=== PATIENT | female | born 1930 | race Caucasian/White ===

== ENCOUNTER 2018-03-07 15:05 | Inpatient (IN) | payer OTHER ==
--- NOTE | 2018-03-07 15:17 | PDOC ---
History of Present Illness - History of Present Illness Initial Comments: 03/07/18 16:59 The patient is a 87 year old female, with a significant past medical history of dementia, who presents to the emergency department s/p fall via EMS from [facility] with, left arm pain. As per patients friend, she fell in her room and was found on the floor. The patient had another recent fall this weekend and was advised to use a walker which she denied. The patient is a poor historian due to her clinical condition. She endorses left wrist pain. Allergies: NKA Primary Care Physician: Dr. Reid <Anthony Colin - Last Filed: 03/07/18 16:59> <Traci Salomon - Last Filed: 03/07/18 17:12> <Irish Lau - Last Filed: 03/07/18 20:09> - General History Source: Patient Exam Limitations: No Limitations <Elo Luu - Last Filed: 03/09/18 10:01> - General Chief Complaint: Injury Stated Complaint: FALL Time Seen by Provider: 03/07/18 15:16 Past History <Anthony Colin - Last Filed: 03/07/18 16:59> <Traci Salomon - Last Filed: 03/07/18 17:12> <Irish Lau - Last Filed: 03/07/18 20:09> <Elo Luu - Last Filed: 03/09/18 10:01> - Past Medical History Allergies/Adverse Reactions: Allergies Allergy/AdvReac Type Severity Reaction Status Date / Time No Known Allergies Allergy Verified 03/07/18 15:25 Home Medications: Ambulatory Orders Acetaminophen [Tylenol] 650 mg PO DAILY PRN 03/07/18 Aspirin 81 mg PO DAILY 03/07/18 Bimatoprost [Lumigan] 1 drop IO DAILY 03/07/18 Calcium Carbonate/Vitamin D3 [Oyster Shell 500-Vit D3 200 Tb] 1 each PO DAILY Cholecalciferol (Vitamin D3) [Vitamin D3] 1,000 unit PO DAILY 03/07/18 Donepezil HCl [Aricept -] 10 mg PO DAILY 03/07/18 Fluoxetine HCl [Sarafem] 10 mg PO DAILY 03/07/18 Fluticasone Prop 0.05% Nasal [Flonase -] 1 - 2 spray NS DAILY 03/07/18 Lisinopril [Prinivil] 20 mg PO DAILY 03/07/18 Memantine HCl [Namenda -] 10 mg PO DAILY 03/07/18 Simvastatin [Zocor -] 20 mg PO HS 03/07/18 clonazePAM [Klonopin -] 0.5 mg PO DAILY 03/07/18 Polyvinyl Alcohol [Artificial Tears] 1 drop OS TID 03/08/18 Timolol 0.25% [Timoptic 0.25%] 1 drop OD BID 03/08/18 Review of Systems - Review of Systems Able to Perform ROS?: Yes Comments:: 03/07/18 16:59 CONSTITUTIONAL: No fever, no chills, no fatigue EYES: No visual changes ENT: No ear pain, no sore throat CARDIOVASCULAR: No chest pain, no palpitations RESPIRATORY: No cough, no SOB GI: No abdominal pain, no nausea, no vomiting, no constipation, no diarrhea GENITOURINARY: No dysuria, no frequency, no hematuria +MUSKULOSKELETAL: Left wrist pain. No backpain. SKIN: No rash NEURO: No headache All Other Systems: Reviewed and Negative <Anthony Colin - Last Filed: 03/07/18 16:59> *Physical Exam - Vital Signs Last Vital Signs Temp Pulse Resp BP Pulse Ox 98.8 F 92 H 18 102/74 93 L 03/07/18 15:11 03/07/18 16:21 03/07/18 16:21 03/07/18 16:21 03/07/18 16:21 <Anthony oClin - Last Filed: 03/07/18 16:59> - Vital Signs Last Vital Signs Temp Pulse Resp BP Pulse Ox 98.8 F 92 H 18 102/74 93 L 03/07/18 15:11 03/07/18 16:21 03/07/18 16:21 03/07/18 16:21 03/07/18 16:21 <Traci Salomon - Last Filed: 03/07/18 17:12> - Vital Signs Last Vital Signs Temp Pulse Resp BP Pulse Ox 98.8 F 92 H 18 102/74 93 L 03/07/18 15:11 03/07/18 16:21 03/07/18 16:21 03/07/18 16:21 03/07/18 16:21 <Irish Lau - Last Filed: 03/07/18 20:09> ED Treatment Course - LABORATORY CBC & Chemistry Diagram: 03/07/18 16:00 03/07/18 16:00 - ADDITIONAL ORDERS Additional order review: Laboratory Results 03/07/18 03/07/18 16:00 16:00 PT with INR 12.40 INR 1.10 H Sodium 136 Potassium 4.5 Chloride 99 Carbon Dioxide 30 Anion Gap 7 L BUN 26 H Creatinine 0.9 Creat Clearance w eGFR 59.09 Random Glucose 115 H Calcium 8.5 Total Bilirubin 0.2 AST 17 ALT 18 Alkaline Phosphatase 94 Creatine Kinase 61 Troponin I < 0.02 Total Protein 6.2 L Albumin 3.2 L 03/07/18 16:00 RBC 4.20 MCV 89.8 MCHC 34.1 RDW 13.0 MPV 7.9 Neutrophils % 80.3 Lymphocytes % 11.7 Monocytes % 5.7 Eosinophils % 1.5 Basophils % 0.8 - Medications Given in the ED: ED Medications Discontinued Medications Generic Name Dose Route Start Last Admin Trade Name Freq PRN Reason Stop Dose Admin Morphine Sulfate 2 mg 03/07/18 16:36 03/07/18 16:45 Morphine Injection - IVPUSH 03/07/18 16:37 2 mg ONCE ONE Administration <Anthony Colin - Last Filed: 03/07/18 16:59> - LABORATORY CBC & Chemistry Diagram: 03/07/18 16:00 03/07/18 16:00 - ADDITIONAL ORDERS Additional order review: Laboratory Results 03/07/18 03/07/18 03/07/18 16:00 16:00 16:00 PT with INR 12.40 INR 1.10 H Sodium 136 Potassium 4.5 Chloride 99 Carbon Dioxide 30 Anion Gap 7 L BUN 26 H Creatinine 0.9 Creat Clearance w eGFR 59.09 Random Glucose 115 H Calcium 8.5 Total Bilirubin 0.2 AST 17 ALT 18 Alkaline Phosphatase 94 Creatine Kinase 61 Troponin I < 0.02 Total Protein 6.2 L Albumin 3.2 L Blood Type O POSITIVE 03/07/18 16:00 RBC 4.20 MCV 89.8 MCHC 34.1 RDW 13.0 MPV 7.9 Neutrophils % 80.3 Lymphocytes % 11.7 Monocytes % 5.7 Eosinophils % 1.5 Basophils % 0.8 - Medications Given in the ED: ED Medications Discontinued Medications Generic Name Dose Route Start Last Admin Trade Name Freq PRN Reason Stop Dose Admin Morphine Sulfate 2 mg 03/07/18 16:36 03/07/18 16:45 Morphine Injection - IVPUSH 03/07/18 16:37 2 mg ONCE ONE Administration <Traci Salomon - Last Filed: 03/07/18 17:12> - LABORATORY CBC & Chemistry Diagram: 03/07/18 16:00 03/07/18 16:00 - ADDITIONAL ORDERS Additional order review: Laboratory Results 03/07/18 03/07/18 03/07/18 16:00 16:00 16:00 PT with INR 12.40 INR 1.10 H Sodium 136 Potassium 4.5 Chloride 99 Carbon Dioxide 30 Anion Gap 7 L BUN 26 H Creatinine 0.9 Creat Clearance w eGFR 59.09 Random Glucose 115 H Calcium 8.5 Total Bilirubin 0.2 AST 17 ALT 18 Alkaline Phosphatase 94 Creatine Kinase 61 Troponin I < 0.02 Total Protein 6.2 L Albumin 3.2 L Blood Type O POSITIVE Antibody Screen Negative 03/07/18 16:00 RBC 4.20 MCV 89.8 MCHC 34.1 RDW 13.0 MPV 7.9 Neutrophils % 80.3 Lymphocytes % 11.7 Monocytes % 5.7 Eosinophils % 1.5 Basophils % 0.8 - Medications Given in the ED: ED Medications Discontinued Medications Generic Name Dose Route Start Last Admin Trade Name Freq PRN Reason Stop Dose Admin Haloperidol 5 mg 03/07/18 17:29 03/07/18 17:30 Haldol Injection (Fast Acting) - IM 03/07/18 17:30 5 mg ONCE ONE Administration Lorazepam 2 mg 03/07/18 19:54 03/07/18 20:05 Ativan Injection - IM 03/07/18 19:55 2 mg ONCE ONE Administration Morphine Sulfate 2 mg 03/07/18 16:36 03/07/18 16:45 Morphine Injection - IVPUSH 03/07/18 16:37 2 mg ONCE ONE Administration <Irish Lau - Last Filed: 03/07/18 20:09> - LABORATORY CBC & Chemistry Diagram: 03/09/18 06:00 03/09/18 06:00 <Elo Luu - Last Filed: 03/09/18 10:01> Medical Decision Making - Medical Decision Making 03/07/18 17:[address] Bob at this time. Dr. Bbo will be coming to the ED to see the patient. <Traci Salomon - Last Filed: 03/07/18 17:12> - Medical Decision Making 03/07/18 16:09 87 yo F presenting to the ER s/p fall , unwitnessed Pt has dementia, poor historian Pt has obvious left wrist deformity Pt also reports hip pain Will do: Labs CT head, and C spine Xray chest, hip, wrist Will contact ortho Will plan for possible admission EKG: Twelve-lead EKG was performed and reviewed by me. There is normal sinus rhythm with a normal rate of 61 bpm. The axis is normal. The intervals are normal. There are no ST or T wave abnormalities. Impression: Normal twelve-lead EKG 03/07/18 16:38 Laboratory Tests 03/07/18 03/07/18 16:00 16:00 WBC 10.8 H Hgb 12.9 Hct 37.7 Plt Count 215 INR 1.10 H Pt signed out to Dr Lau Pending xrays, labs, CT scans Call placed to Dr. Bob who will come see this patient <Elo Luu - Last Filed: 03/09/18 10:01> *DC/Admit/Observation/Transfer - Attestations Scribe Attestion: 03/07/18 17:00 Documentation prepared by Anthony Colin, acting as medical auditor for Elo Luu MD. <Anthony Colin - Last Filed: 03/07/18 16:59> <Traci Salomon - Last Filed: 03/07/18 17:12> - Discharge Dispostion Decision to Admit order: Yes <Irish Lau - Last Filed: 03/07/18 20:09> <Elo Luu - Last Filed: 03/09/18 10:01> Diagnosis at time of Disposition: Intertrochanteric fracture of left hip Qualifiers: Encounter type: initial encounter Fracture type: closed Fracture alignment: displaced Qualified Code(s): S72.142A - Displaced intertrochanteric fracture of left femur, initial encounter for closed fracture Wrist fracture, left Qualifiers: Encounter type: initial encounter Fracture type: closed Qualified Code(s): S62.102A - Fracture of unspecified carpal bone, left wrist, initial encounter for closed fracture Dementia Qualifiers: Dementia type: unspecified type Dementia behavioral disturbance: with behavioral disturbance Qualified Code(s): F03.91 - Unspecified dementia with behavioral disturbance
[2018-03-07 16:09] LABS: BASO % 0.8 % (0-2.0); EOS % 1.5 % (0-4.5); HEMATOCRIT 37.7 % (32.4-45.2); HEMOGLOBIN 12.9 GM/dL (10.7-15.3); LYMPH % 11.7 % (8-40); MCH 30.6 pg (25.7-33.7); MCHC 34.1 g/dl (32.0-36.0); MEAN CELL VOLUME 89.8 fl (80-96); MEAN PLT VOLUME 7.9 fl (7.5-11.1); MONO % 5.7 % (3.8-10.2); NEUT % 80.3 % (42.8-82.8); PLATELET COUNT 215 K/MM3 (134-434); WHITE BLOOD COUNT 10.8 K/mm3 (4.0-10.0)
[2018-03-07 16:35] LABS: ALBUMIN 3.2 g/dl (3.4-5.0); ANION GAP 7 (8-16); BILIRUBIN,TOTAL 0.2 mg/dL (0.2-1.0); BLOOD UREA NITROGEN 26 mg/dL (7-18); CALCIUM 8.5 mg/dL (8.5-10.1); CHLORIDE 99 mmol/L (98-107); CO2 30 mmol/L (21-32); CREATININE 0.9 mg/dL (0.55-1.02); GLUCOSE,RANDOM 115 mg/dL (74-106); INR 1.1 (0.83-1.09); POTASSIUM 4.5 mmol/L (3.5-5.1); PROTHROMBIN TIME (PATIENT) 12.4 SEC (9.7-13.0); SGOT/AST 17 U/L (15-37); SGPT/ALT 18 U/L (12-78); SODIUM 136 mmol/L (136-145); TOT PROT 6.2 g/dl (6.4-8.2)
[2018-03-07] MEDS ORDERED: morphine CARPU-JECT 4 MG/1 ML DISP.SYRIN IVPUSH ONE (16:36)
[2018-03-07 16:37] LABS: ALK PHOS 94 U/L (45-117)
[2018-03-07] MEDS ORDERED: MORPHINE SULFATE 2 MG/ML VIAL ONE (16:39)
[2018-03-07] MEDS ORDERED: HALOPERIDOL LACTATE 5 MG/ML ONE (17:21)
[2018-03-07] MEDS ORDERED: HALOPERIDOL LACTATE 5 MG/ML IM ONE (17:29)
[2018-03-07] MEDS ORDERED: LORazepam 2 MG/ML SDV VIAL ONE (19:58)
--- NOTE | 2018-03-07 21:00 | HP ---
CHIEF COMPLAINT:left wrist pain s/p fall PCP:Dr. Reid HISTORY OF PRESENT ILLNESS: Patient is an 87 year old female with past medical history of dementia was brought in by EMS after a fall. According to her friend, she fell in her room and was found on the floor. Patient complained of left wrist pain. Patient was also reported to have had another fall last weekend. She was advised to use a walker but patient denied it. Patient was somnolent and unarousable at time of interview because she received morphine at the ED. ER course was notable for: (1)Xray of left wrist - displaced fx of distal radius with post. and lat. displacement of distal segment (2)Xray of left hip - comminuted fx of L femoral intratrochanteric bone with displaced fragments and avulsion of lesser trochanter Recent Travel: [place] PAST MEDICAL HISTORY: Dementia PAST SURGICAL HISTORY: Social History: Smoking: Alcohol: Drugs: Family History: Allergies No Known Allergies Allergy (Verified 03/07/18 15:25) HOME MEDICATIONS: Home Medications Medication Instructions Recorded Acetaminophen [Tylenol] 650 mg PO DAILY PRN 03/07/18 Aspirin 81 mg PO DAILY 03/07/18 Bimatoprost [Lumigan] 1 drop IO DAILY 03/07/18 Calcium Carbonate/Vitamin D3 1 each PO DAILY 03/07/18 [Oyster Shell 500-Vit D3 200 Tb] Cholecalciferol (Vitamin D3) 1,000 unit PO DAILY 03/07/18 [Vitamin D3] Donepezil HCl [Aricept -] 10 mg PO DAILY 03/07/18 Fluoxetine HCl [Sarafem] 10 mg PO DAILY 03/07/18 Fluticasone Prop 0.05% Nasal 1 - 2 spray NS DAILY 03/07/18 [Flonase -] Lisinopril [Prinivil] 20 mg PO DAILY 03/07/18 Memantine HCl [Namenda -] 10 mg PO DAILY 03/07/18 Simvastatin [Zocor -] 20 mg PO HS 03/07/18 clonazePAM [Klonopin -] 0.5 mg PO DAILY 03/07/18 REVIEW OF SYSTEMS CONSTITUTIONAL: Absent: fever, chills, diaphoresis, generalized weakness, malaise, loss of appetite, weight change HEENT: Absent: rhinorrhea, nasal congestion, throat pain, throat swelling, difficulty swallowing, mouth swelling, ear pain, eye pain, visual changes CARDIOVASCULAR: Absent: chest pain, syncope, palpitations, irregular heart rate, lightheadedness , peripheral edema RESPIRATORY: Absent: cough, shortness of breath, dyspnea with exertion, orthopnea, wheezing, stridor, hemoptysis GASTROINTESTINAL: Absent: abdominal pain, abdominal distension, nausea, vomiting, diarrhea, constipation, melena, hematochezia GENITOURINARY: Absent: dysuria, frequency, urgency, hesitancy, hematuria, flank pain, genital pain MUSCULOSKELETAL: + joint swelling Absent: myalgia, arthralgia, back pain, neck pain SKIN: Absent: rash, itching, pallor HEMATOLOGIC/IMMUNOLOGIC: Absent: easy bleeding, easy bruising, lymphadenopathy, frequent infections ENDOCRINE: Absent: unexplained weight gain, unexplained weight loss, heat intolerance, cold intolerance NEUROLOGIC: Absent: headache, focal weakness or paresthesias, dizziness, unsteady gait, seizure, mental status changes, bladder or bowel incontinence PSYCHIATRIC: Absent: anxiety, depression, suicidal or homicidal ideation, hallucinations. PHYSICAL EXAMINATION Vital Signs - 24 hr 03/07/18 03/07/18 15:11 16:21 Temperature 98.8 F Pulse Rate 92 H Pulse Rate [ 92 H Right Radial] Respiratory 16 18 Rate Blood Pressure 168/80 Blood Pressure 102/74 [Left Arm] O2 Sat by Pulse 96 93 L Oximetry (%) GENERAL: somnolent, unarousable, in no acute distress. HEAD: Normal with no signs of trauma. EARS, NOSE, THROAT: Ears normal, nares patent, oropharynx clear without exudates. Moist mucous membranes. NECK: Normal range of motion, supple without lymphadenopathy, JVD, or masses. LUNGS: Breath sounds equal, clear to auscultation bilaterally. No accessory muscle use. HEART: Regular rate and rhythm, normal S1 and S2 without murmur, rub or gallop. ABDOMEN: Soft, nontender, not distended, normoactive bowel sounds. UPPER EXTREMITIES: 2+ pulses, warm, well-perfused. +bruise, L wrist LOWER EXTREMITIES: 2+ pulses, warm, well-perfused. +bruise, L hip NEUROLOGICAL: Cranial nerves II-XII intact. Normal speech. Normal gait. PSYCHIATRIC: Cooperative. Good eye contact. Appropriate mood and affect. SKIN: Warm, dry, normal turgor, no rashes or lesions noted. Laboratory Results - last 24 hr 03/07/18 03/07/18 03/07/18 16:00 16:00 16:00 WBC 10.8 H RBC 4.20 Hgb 12.9 Hct 37.7 MCV 89.8 MCH 30.6 MCHC 34.1 RDW 13.0 Plt Count 215 MPV 7.9 Absolute Neuts (auto) 8.6 Neutrophils % 80.3 Lymphocytes % 11.7 Monocytes % 5.7 Eosinophils % 1.5 Basophils % 0.8 Nucleated RBC % 0 PT with INR 12.40 INR 1.10 H Sodium 136 Potassium 4.5 Chloride 99 Carbon Dioxide 30 Anion Gap 7 L BUN 26 H Creatinine 0.9 Creat Clearance w eGFR 59.09 Random Glucose 115 H Calcium 8.5 Total Bilirubin 0.2 AST 17 ALT 18 Alkaline Phosphatase 94 Creatine Kinase 61 Troponin I < 0.02 Total Protein 6.2 L Albumin 3.2 L Blood Type Antibody Screen 03/07/18 16:00 WBC RBC Hgb Hct MCV MCH MCHC RDW Plt Count MPV Absolute Neuts (auto) Neutrophils % Lymphocytes % Monocytes % Eosinophils % Basophils % Nucleated RBC % PT with INR INR Sodium Potassium Chloride Carbon Dioxide Anion Gap BUN Creatinine Creat Clearance w eGFR Random Glucose Calcium Total Bilirubin AST ALT Alkaline Phosphatase Creatine Kinase Troponin I Total Protein Albumin Blood Type O POSITIVE Antibody Screen Negative CBC, BMP 03/07/18 16:00 03/07/18 16:00 ASSESSMENT/PLAN: Patient is an 87 year old female with past medical history of dementia was brought in by EMS after a fall. According to her friend, she fell in her room and was found on the floor. Patient complained of left wrist pain. #Fracture, L wrist and L hip -Xray of left wrist: displaced fx of distal radius with post. and lat. displacement of distal segment -X-ray of left hip: comminuted fx of L femoral intratrochanteric bone with displaced fragments and avulsion of lesser trochanter -Left wrist reduced at the ED. -Iv fluids started. -Patient on NPO. -Fall precaution. -Creatine kinase, UA and urine myoglobin ordered. -Tylenol and morphine PRN for pain. -Dr. Fuchs consult appreciated. -Echo ordered. -Dr. Riggs consult for cardio clearance. #FEN -IV NS (0.9%) at 75ml/hr. -electrolytes WNL, routine BMP monitoring -Sodium restricted diet. #Prophylaxis -Lovenox 40mg sq qd. #Disposition -admit to med-surg. -full code. Visit type - Emergency Visit Emergency Visit: Yes ED Registration Date: 03/07/18 Care time: The patient presented to the Emergency Department on the above date and was hospitalized for further evaluation of their emergent condition. - New Patient This patient is new to me today: Yes Date on this admission: 03/08/18 - Critical Care Critical Care patient: No Hospitalist Screening - Colonoscopy Questionnaire Colonoscopy Questionnaire: Colonoscopy Questionnaire - Patient: 50 - 75 years old and never had a screening colonoscopy: Unknown History of colon or rectal polyps, or CA: Unknown History of IBD, Crohn's disease or UC: Unknown History of abdominal radiation therapy as a child: Unknown - Relative: 1 with colon or rectal CA, or polyps at age 60 or younger: Unknown Colon or rectal CA diagnosed at age 45 or younger: Unknown Multiple relatives with colon or rectal CA: Unknown - Outcome: Screening Result: Negative Screen
[2018-03-07] MEDS ORDERED: LIDOCAINE HCL 2% (20ML MULTI-DOSE VIAL) NR ONE (21:16)
[2018-03-08 02:55] VITALS: BMI 29.5
[2018-03-08] MEDS ORDERED: ACETAMINOPHEN 325 MG TABLET (FP) PO PRN (03:18)
--- NOTE | 2018-03-08 03:23 | PN ---
Teaching Attending Note Name of Resident: Jeniffer Chavez ATTENDING PHYSICIAN STATEMENT I saw and evaluated the patient. Chart, data, imaging reviewed. I reviewed the resident's note and discussed the case with the resident. I agree with the resident's findings and plan as documented. SUBJECTIVE: 87 year old female, with a significant past medical history of dementia, who presents to the emergency department s/p fall via EMS from [facility] on [place] s/p unwitnessed fall on 03/07, no reported LOC, but c/o pain in left upper extremity. Patient was olmos-imaged and found to have left wrist fracture and left hip intertrochanteric fracture. S/p left wrist reduction in ER. OBJECTIVE: Last Vital Signs Temp Pulse Resp BP Pulse Ox 97.7 F 77 18 155/72 98 03/08/18 02:49 03/08/18 02:49 03/08/18 02:49 03/08/18 02:49 03/08/18 02:49 General- nad, disoriented Heent - atraumatic, pinpoint pupils neck- supple cv - s1+s2+ rrr chest b/l air entry abdomen -soft, nt bs+ ext -left wrist in cast+, left hip tender Abnormal Lab Results 03/07/18 03/07/18 03/07/18 16:00 16:00 16:00 WBC 10.8 H INR 1.10 H Anion Gap 7 L BUN 26 H Random Glucose 115 H Total Protein 6.2 L Albumin 3.2 L ekg - reviewed by me, nsr, poor r wave progression, pathological Q waves in v1- v3 imaging reviewed- left wrist distal radial fx. avulsion fx of left ulnar styloid process ASSESSMENT AND PLAN: #87yo woman s/p unwitnessed fall with + left wrist fracture (distal radial and left ulnar styloid process) and left hip fracture. -admit to med/surg -orthopedics consult -pain control- tylenol IV prn -gentle IV fluid hydration -left wrist and left hip immobilization -PT -PTT -type and screen -NPO -fall precautions -bed rest -transthoracic echo -cardiology consult for cardiac clearance -lovenox 40mg sc q24hrs for DVT ppx
[2018-03-08] MEDS: SODIUM CHLORIDE 1,000 ML IV SCH (05:29)
[2018-03-08] MEDS ORDERED: HEPARIN NA (PORCINE) 5,000 UNITS/ML 1ML VIAL SQ SCH (06:00)
[2018-03-08 07:57] LABS: HEMATOCRIT 34.2 % (32.4-45.2); HEMOGLOBIN 11.4 GM/dL (10.7-15.3); MCH 30.2 pg (25.7-33.7); MCHC 33.3 g/dl (32.0-36.0); MEAN CELL VOLUME 90.7 fl (80-96); PLATELET COUNT 183 K/MM3 (134-434); RBC 3.78 M/mm3 (3.60-5.2); RDW 12.9 % (11.6-15.6); WHITE BLOOD COUNT 11.9 K/mm3 (4.0-10.0)
[2018-03-08 08:18] LABS: CHLORIDE 102 mmol/L (98-107); SODIUM 140 mmol/L (136-145)
[2018-03-08 08:23] LABS: ANION GAP 11 (8-16); BLOOD UREA NITROGEN 33 mg/dL (7-18); CALCIUM 8.3 mg/dL (8.5-10.1); CO2 27 mmol/L (21-32); CREATININE 0.9 mg/dL (0.55-1.02); GLUCOSE,RANDOM 150 mg/dL (74-106); MAGNESIUM 2.1 mg/dL (1.8-2.4); PHOSPHOROUS 4.3 mg/dL (2.5-4.9)
--- NOTE | 2018-03-08 12:41 | CON.CARD ---
Consult Consult Specialty:: Cardiology Referred by:: Hospitalist Reason for Consultation:: Cardiac evaluation - History of Present Illness Chief Complaint: S/P fall resulting in left wrist fracture History of Present Illness: Patient is an 87 year old female with underlying history of organic brain syndrome, dementia and probable HTN and hyperlipidemia who presented to ED after a fall resulting in left wrist fracture. Currently cast is applied to the wrist. She was transferred from [facility] on [facility]. She was found in her room on the floor. She is a poor historian and is not able to give a full history. She appears not to be having any cardiac symptoms at this time. 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 Cardio/Vascular: Yes: HTN, Hyperlipdemia - Alcohol/Substance Use Hx Alcohol Use: No - Smoking History Smoking history: Never smoked Have you smoked in the past 12 months: No Home Medications - Allergies Allergies/Adverse Reactions: Allergies Allergy/AdvReac Type Severity Reaction Status Date / Time No Known Allergies Allergy Verified 03/07/18 15:25 - Home Medications Home Medications: Ambulatory Orders Acetaminophen [Tylenol] 650 mg PO DAILY PRN 03/07/18 Aspirin 81 mg PO DAILY 03/07/18 Bimatoprost [Lumigan] 1 drop IO DAILY 03/07/18 Calcium Carbonate/Vitamin D3 [Oyster Shell 500-Vit D3 200 Tb] 1 each PO DAILY Cholecalciferol (Vitamin D3) [Vitamin D3] 1,000 unit PO DAILY 03/07/18 Donepezil HCl [Aricept -] 10 mg PO DAILY 03/07/18 Fluoxetine HCl [Sarafem] 10 mg PO DAILY 03/07/18 Fluticasone Prop 0.05% Nasal [Flonase -] 1 - 2 spray NS DAILY 03/07/18 Lisinopril [Prinivil] 20 mg PO DAILY 03/07/18 Memantine HCl [Namenda -] 10 mg PO DAILY 03/07/18 Simvastatin [Zocor -] 20 mg PO HS 03/07/18 clonazePAM [Klonopin -] 0.5 mg PO DAILY 03/07/18 Family Disease History - Family Disease History Family History: Unable to Obtain Review of Systems Unable to obtain ROS, reason: Unable to obtain Vital Signs: Vital Signs Temperature 98.2 F 03/08/18 10:00 Pulse Rate 85 03/08/18 10:00 Respiratory Rate 20 03/08/18 10:00 Blood Pressure 122/47 03/08/18 10:00 O2 Sat by Pulse Oximetry (%) 98 03/08/18 05:05 HENT: Yes: Atraumatic Neck: Yes: Supple Respiratory: Yes: CTA Bilaterally Gastrointestinal: Yes: Normal Bowel Sounds, Soft. No: Tenderness Cardiovascular: Yes: Regular Rate and Rhythm JVD: No Carotid Bruit: No PMI: Non-Displaced Heart Sounds: Yes: S1, S2. No: Gallop Extremities: Yes: Other (Cast applied to left wrist) Edema: No - Other Data Labs, Other Data: CBC, BMP 03/08/18 06:20 03/08/18 06:20 INR, PTT INR 1.10 (0.83-1.09) H 03/07/18 16:00 Troponin, BNP 03/07/18 16:00 Troponin I < 0.02 Laboratory Results - last 24 hr 03/07/18 03/07/18 03/07/18 16:00 16:00 16:00 WBC 10.8 H RBC 4.20 Hgb 12.9 Hct 37.7 MCV 89.8 MCH 30.6 MCHC 34.1 RDW 13.0 Plt Count 215 MPV 7.9 Absolute Neuts (auto) 8.6 Neutrophils % 80.3 Lymphocytes % 11.7 Monocytes % 5.7 Eosinophils % 1.5 Basophils % 0.8 Nucleated RBC % 0 PT with INR 12.40 INR 1.10 H Sodium 136 Potassium 4.5 Chloride 99 Carbon Dioxide 30 Anion Gap 7 L BUN 26 H Creatinine 0.9 Creat Clearance w eGFR 59.09 Random Glucose 115 H Calcium 8.5 Phosphorus Magnesium Total Bilirubin 0.2 AST 17 ALT 18 Alkaline Phosphatase 94 Creatine Kinase 61 Creatine Kinase Index CK-MB (CK-2) Troponin I < 0.02 Total Protein 6.2 L Albumin 3.2 L Blood Type Antibody Screen 03/07/18 03/08/18 03/08/18 16:00 06:20 06:20 WBC 11.9 H RBC 3.78 Hgb 11.4 Hct 34.2 MCV 90.7 MCH 30.2 MCHC 33.3 RDW 12.9 Plt Count 183 MPV 8.0 Absolute Neuts (auto) Neutrophils % Lymphocytes % Monocytes % Eosinophils % Basophils % Nucleated RBC % PT with INR INR Sodium 140 Potassium 4.0 Chloride 102 Carbon Dioxide 27 Anion Gap 11 BUN 33 H Creatinine 0.9 Creat Clearance w eGFR 59.09 Random Glucose 150 H Calcium 8.3 L Phosphorus 4.3 Magnesium 2.1 Total Bilirubin AST ALT Alkaline Phosphatase Creatine Kinase Creatine Kinase Index CK-MB (CK-2) Troponin I Total Protein Albumin Blood Type O POSITIVE Antibody Screen Negative 03/08/18 06:20 WBC RBC Hgb Hct MCV MCH MCHC RDW Plt Count MPV Absolute Neuts (auto) Neutrophils % Lymphocytes % Monocytes % Eosinophils % Basophils % Nucleated RBC % PT with INR INR Sodium Potassium Chloride Carbon Dioxide Anion Gap BUN Creatinine Creat Clearance w eGFR Random Glucose Calcium Phosphorus Magnesium Total Bilirubin AST ALT Alkaline Phosphatase Creatine Kinase 166 Creatine Kinase Index 1.1 CK-MB (CK-2) 1.93 Troponin I Total Protein Albumin Blood Type Antibody Screen Sinus rhythm, no ST-T abnormality Imaging - Results Chest X-ray: Report Reviewed X-ray: Report Reviewed (Wrist Xray) Cat Scan: Report Reviewed (Head CT) EKG: Report Reviewed Problem List - Problems (1) Dementia Code(s): F03.90 - UNSPECIFIED DEMENTIA WITHOUT BEHAVIORAL DISTURBANCE Qualifiers: Dementia type: unspecified type Dementia behavioral disturbance: with behavioral disturbance Qualified Code(s): F03.91 - Unspecified dementia with behavioral disturbance (2) Wrist fracture, left Code(s): S62.102A - FRACTURE OF UNSP CARPAL BONE, LEFT WRIST, INIT FOR CLOS FX Qualifiers: Encounter type: initial encounter Fracture type: closed Qualified Code(s) : S62.102A - Fracture of unspecified carpal bone, left wrist, initial encounter for closed fracture (3) Intertrochanteric fracture of left hip Code(s): S72.142A - DISPLACED INTERTROCHANTERIC FRACTURE OF LEFT FEMUR, INIT Qualifiers: Encounter type: initial encounter Fracture type: closed Fracture alignment: displaced Qualified Code(s): S72.142A - Displaced intertrochanteric fracture of left femur, initial encounter for closed fracture (4) HTN (hypertension) Code(s): I10 - ESSENTIAL (PRIMARY) HYPERTENSION (5) Hypercholesterolemia Code(s): E78.00 - PURE HYPERCHOLESTEROLEMIA, UNSPECIFIED Assessment/Plan 1. Left wrist fracture and left hip fracture s/p fall 2. HTN 3. Hypercholesterolemia 4. Organinc brain/dementia PLAN: 1. Continue Lisinopril as tolerated 2. Continue statin therapy 3. Orthopedic evaluation to follow. If patient were to undergo surgery, there is no absolute contraindication in view of absence of ischemic symptoms, decompensated congestive heart failure of malignant arrhythmias, however; increased risk based on her advanced age. 4. Echocardiography to assess LV/RV and valvular function Further recommendation to follow Wilfredo Limon MD
[2018-03-08] MEDS: MORPHINE SULFATE 2 MG/ML VIAL IVPUSH PRN (13:40)
--- NOTE | 2018-03-08 13:50 | PN ---
Progress Note (short form) - Note Progress Note: Consult dictated. Pt requires IM nail of left hip. Will plan surgery tomorrow if clear. Elevate LUE for swelling.
--- NOTE | 2018-03-08 14:08 | PN ---
Teaching Attending Note Name of Resident: Cindy Roman ATTENDING PHYSICIAN STATEMENT I saw and evaluated the patient. I reviewed the resident's note and discussed the case with the resident. I agree with the resident's findings and plan as documented. SUBJECTIVE:c/o L hip pain which improves with pain medication. denies Cp, SOB, fever, chills, N/V/C/D, denies LOC from the fall. admits to not using her walker as told to. METS <4. no complications with anesthesia in the past OBJECTIVE: Last Vital Signs Temp Pulse Resp BP Pulse Ox 98.2 F 85 20 122/47 98 03/08/18 10:00 03/08/18 10:00 03/08/18 10:00 03/08/18 10:03/08/18 05:05 General NAD [facility], doze off during interview but would quickly wake up CV S1 s2 + Lungs CTA B/L no wheezing/rales/rhonchi Extremities LUE in hard cast, able to move the digits without difficulty, good capillary refill unable to access radial pulse due to cast LLE +point tenderness of the hip. leg is short and externally rotated ASSESSMENT AND PLAN: 87yo F wtih PMH dementia and HTN presented to the ER after mechanical fall and sustained L wrist and L hip fracture 1. L hip fracture- s/p mechanical fall. pt is intermediate risk for intermediate risk procedure. NPO awaiting surgery at this time. will need JASON post-op. pain control 2. L wrist fracture- s/p manual reduction in the Er with cast applied. will need repeat imaging in several weeks. Ortho f/u outpatient. pain control 3. mechanical fall- due to non-compliance with RW. CT head showing chronic changes. PT eval 4. Agitation- noted in the ER. s/p haldol and ativan. lethargy likely due to medications. will monitor mental status. 5. dementia- will need to obtain baseline. re-start home medications. 6. HTN- controlled off medications. will monitor and re-start meds as needed 7. DVT ppx- hep sq 8. will need JASON on discharge
--- NOTE | 2018-03-08 14:30 | CONS ---
DATE OF CONSULTATION: 03/07/2018 CHIEF COMPLAINT: Right and hip fracture. HISTORY OF PRESENT ILLNESS: This is an 87-year-old woman who was brought to the emergency department by ambulance. She is suffering from dementia and is not able to give a history, but according to the chart, the patient was found on the floor in her room. She has had a history of falls. At the time of the exam, the patient is sedated and not communicating at all. PAST MEDICAL HISTORY: Includes dementia as well as possibly hypertension. PAST SURGICAL HISTORY: No known surgical history. SOCIAL HISTORY: No known social history. FAMILY HISTORY: No known family history. ALLERGIES: No known allergies. MEDICATIONS: Reviewed and in chart but also suggest hyperlipidemia. PHYSICAL EXAMINATION: General: This is an elderly female who is lying sedated in bed. Extremities: She moves her arm in response to palpation of the left wrist. Examination of the left wrist demonstrates gross deformity. There are no skin lesions. There is mild swelling. Has 2+ radial pulse. The left lower extremity is shortened and externally rotated and 2+ DP pulse. There is no apparent pulse to palpation of the knee. There is no effusion of the knee. No swelling at the ankle or tenderness at the ankle. DIAGNOSTIC DATA: Radiographs reviewed demonstrating a displaced, comminuted fracture of the distal radius and a displaced left intertrochanteric hip fracture. ASSESSMENT: Left wrist and left hip fracture. PLAN: Regarding the patient's left wrist fracture, this should be amenable to closed treatment. A reduction was affected tonight. The left wrist was prepped with alcohol. Under sterile technique, a 22-gauge needle was inserted into the hematoma, and 9 mL of 1% lidocaine was injected. The wrist at that hung in traction. A manual reduction was affected. A well-padded short-arm cast with a 3-point mold was placed. Postreduction radiographs demonstrated satisfactory reduction. The patient should keep the arm elevated to avoid swelling inside the cast. Regarding her hip fracture, she will require operative management. She will be medically optimized and will be brought to the operating room tomorrow or the next day, depending on when clearance is obtained. We will review the procedure with her guardian including the risks, benefits, and alternatives. Rahul [id number]
--- NOTE | 2018-03-08 16:14 | ECHO ---
Name: ARMEN JUAN Exam:Adult Echocardiogram Study Date: 03/08/2018 08:25 AM Age: 87 yrs Reason For Study: R/O VALVE ABNORMALITY Height: 64 in Weight: 172 lb BSA: 1.8 m2 MMode/2D Measurements & Calculations IVSd: 1.4 cm Ao root diam: 2.4 cm LVIDd: 3.1 cm LA dimension: 2.5 cm LVIDs: 1.9 cm LVPWd: 1.3 cm EDV(Teich): 36.7 ml ESV(Teich): 11.7 ml Doppler Measurements & Calculations MV E max mauro: 60.9 cm/sec TR max mauro: 247.7 cm/sec MV A max mauro: 100.8 cm/sec TR max P.6 mmHg MV E/A: 0.60 MV dec time: 0.21 sec Med Peak E' Mauro: 4.2 cm/sec Med E/e': 14.4 Lat Peak E' Mauro: 6.4 cm/sec Lat E/e': 9.5 Procedure A complete two-dimensional transthoracic echocardiogram was performed (2D, M-mode, Doppler and color flow Doppler). Left Ventricle The left ventricle is normal in size. There is mild concentric left ventricular hypertrophy. Ejection Fraction = 65%. The transmitral spectral Doppler flow pattern is suggestive of impaired LV relaxation. Right Ventricle The right ventricle is normal in size and function. Atria Normal left and right atrial size and function. Mitral Valve There is moderate mitral annular calcification. There is trace to mild mitral regurgitation. Tricuspid Valve The tricuspid valve is not well visualized, but is grossly normal. There is trace tricuspid regurgita tion. Right ventricular systolic pressure is 25 mmhg. Aortic Valve There is mild aortic sclerosis.;. No aortic regurgitation is present. Pulmonic Valve The pulmonic valve is not well visualized. Great Vessels The aortic root is normal size. Normal aortic arch, descending and ascending aorta. Pericardium/Pleura There is no pericardial effusion. There is no pleural effusion. Interpretation Summary The left ventricle is normal in size. There is mild concentric left ventricular hypertrophy. Ejection Fraction = 65%. The transmitral spectral Doppler flow pattern is suggestive of impaired LV relaxation. The right ventricle is normal in size and function. There is moderate mitral annular calcification. There is trace to mild mitral regurgitation. There is trace tricuspid regurgitation. Right ventricular systolic pressure is 25 mmhg. There is mild aortic sclerosis.; MD Torito Staton 03/08/2018 04:14 PM
--- NOTE | 2018-03-08 16:27 | EKG ---
Test Reason : Blood Pressure : / mmHG Vent. Rate : 061 BPM Atrial Rate : 061 BPM P-R Int : 158 ms QRS Dur : 086 ms QT Int : 416 ms P-R-T Axes : 034 010 042 degrees QTc Int : 418 ms NORMAL SINUS RHYTHM POSSIBLE ANTERIOR INFARCT , AGE UNDETERMINED ABNORMAL ECG NO PREVIOUS ECGS AVAILABLE Confirmed by Torito Staton MD ([id number]) on 03/08/2018 4:26:59 PM Referred By: Confirmed By:Torito Staton MD
--- NOTE | 2018-03-08 21:12 | PN ---
Physical Exam: SUBJECTIVE: Patient seen and examined this morning at bedside. She was somnolent and admitted to being out of it. OBJECTIVE: Vital Signs Period Temp Pulse Resp BP Sys/Lara Pulse Ox Last 24 Hr 97.5 F-98.2 F 70-97 14-20 104-155/47-72 90-99 GENERAL: AOx1 to person only, Says she is out of it, [place] of hearing LUNGS: Breath sounds equal, clear to auscultation bilaterally, no wheezes HEART: Regular rate and rhythm, S1, S2 without murmur, rub or gallop. ABDOMEN: Soft, Obese, nontender, nondistended, normoactive bowel sounds UPPER EXTREMITIES: Left wrist casted, unable to flex/extend digits, Radial pulses covered by hard cast, Capillary refill < 3 secs LOWER EXTREMITIES: Left hip pain present on palpation, No edema. Laboratory Results - last 24 hr 03/08/18 03/08/18 03/08/18 06:20 06:20 06:20 WBC 11.9 H RBC 3.78 Hgb 11.4 Hct 34.2 MCV 90.7 MCH 30.2 MCHC 33.3 RDW 12.9 Plt Count 183 MPV 8.0 Sodium 140 Potassium 4.0 Chloride 102 Carbon Dioxide 27 Anion Gap 11 BUN 33 H Creatinine 0.9 Creat Clearance w eGFR 59.09 Random Glucose 150 H Calcium 8.3 L Phosphorus 4.3 Magnesium 2.1 Creatine Kinase 166 Creatine Kinase Index 1.1 CK-MB (CK-2) 1.93 Active Medications Acetaminophen (Tylenol -) 650 mg PO Q4H PRN PRN Reason: PAIN OR FEVER Heparin Sodium (Porcine) (Heparin -) 5,000 unit SQ BID [facility] Sodium Chloride (Normal Saline -) 1,000 mls @ 75 mls/hr IV ASDIR CAMILO Last Admin: 03/08/18 05:29 Dose: 75 mls/hr Morphine Sulfate (Morphine Sulfate) 2 mg IVPUSH Q4H PRN PRN Reason: PAIN LEVEL 6-10 Last Admin: 03/08/18 13:40 Dose: 2 mg IMAGING: - X-ray of the pelvis and left hip: There is a comminuted fracture of the left the femoral intratrochanteric bone with displaced fragments and avulsion of the lesser trochanter. On the crosstable lateral view, there is very poor visualization of the left femoral neck and intertrochanteric region, due to technique with suggestion of mild anterior displacement of the distal femoral shaft. Correlate clinically - X-ray of the left elbow: No gross fracture or dislocation identified - X-ray of the left wrist: Displaced fracture of the distal radius with posterior/ lateral displacement of the distal segment. - X-ray of the left wrist: Previously visualized distal radial fracture appears to be in satisfactory alignment with residual minimal displacement. Avulsion fracture of the ulnar styloid process is again seen. - CXR: [id number] cardiomegaly with moderate to marked atherosclerotic uncoiling of the aortic arch. Mild bilateral increased lung markings without evidence of acute lung disease. - CT Brain: Generalized volume loss and moderate to marked ventricular dilatation. Lateral and third ventricles are relatively more dilated than the fourth, likely due to central atrophy. Cannot rule out normal pressure hydrocephalus or aqueduct of Sylvius narrowing/stenosis. Correlate clinically for further evaluation and follow-up - CT Cervical spine: The alignment is satisfactory. No gross fracture or subluxation is seen. ASSESSMENT/PLAN: 87 year old female with past medical history of dementia was brought in by EMS after a fall. According to her friend, she fell in her room and was found on the floor. Patient complained of left wrist pain. 1. Fracture, L Hip - S/P Mechanical fall due to noncompliance with rolling walker - X-ray of the pelvis and left hip: Comminuted fracture of the left the femoral intratrochanteric bone with displaced fragments and avulsion of the lesser trochanter - Patient is intermediate risk for intermediate risk procedure - Continue Normal Saline @ 75 mls/hr IV - NPO - Fall precaution - Continue Acetaminophen 650 mg PO Q4H PRN - Continue Morphine 2 mg IVPUSH Q4H PRN - Orthopedics (Dr. Bob) consulted, appreciate Rec's, Pt requires IM nail of left hip, Will plan surgery tomorrow 2. Fracture, L wrist - S/P Mechanical fall due to noncompliance with rolling walker - X-ray of the left elbow: No gross fracture or dislocation identified - X-ray of the left wrist: Displaced fracture of the distal radius with posterior/ lateral displacement of the distal segment. - X-ray of the left wrist: Previously visualized distal radial fracture appears to be in satisfactory alignment with residual minimal displacement. Avulsion fracture of the ulnar styloid process is again seen. - S/P Left wrist manual reduction in the ED. - Will need repeat imaging in several weeks, F/U Ortho outpatient - Continue Acetaminophen 650 mg PO Q4H PRN - Continue Morphine 2 mg IVPUSH Q4H PRN - Orthopedics (Dr. Bob) consulted, appreciate Rec's, Elevate LUE for swelling. 3. FEN - Normal Saline @ 75 mls/hr IV - Lytes WNL, replete as needed - Sodium controlled diet 4. PPx - DVT: Lovenox 40mg sq qd. Dispo: admit to med-surg, suygery tmrw Visit type - Emergency Visit Emergency Visit: Yes ED Registration Date: 03/07/18 Care time: The patient presented to the Emergency Department on the above date and was hospitalized for further evaluation of their emergent condition. - New Patient This patient is new to me today: Yes Date on this admission: 03/08/18 - Critical Care Critical Care patient: No
[2018-03-08] MEDS: HEPARIN NA (PORCINE) 5,000 UNITS/ML 1ML VIAL SQ SCH (21:14)
[2018-03-09] MEDS: SODIUM CHLORIDE 1,000 ML IV SCH ×2 (06:49→21:12)
[2018-03-09 07:14] LABS: BASO % 0.4 % (0-2.0); EOS % 0.4 % (0-4.5); HEMATOCRIT 28.3 % (32.4-45.2); HEMOGLOBIN 9.6 GM/dL (10.7-15.3); LYMPH % 12.9 % (8-40); MCH 30.4 pg (25.7-33.7); MEAN CELL VOLUME 89.3 fl (80-96); MEAN PLT VOLUME 8.1 fl (7.5-11.1); MONO % 13.7 % (3.8-10.2); NEUT % 72.6 % (42.8-82.8); PLATELET COUNT 157 K/MM3 (134-434); RBC 3.16 M/mm3 (3.60-5.2); RDW 12.9 % (11.6-15.6); WHITE BLOOD COUNT 11.3 K/mm3 (4.0-10.0)
[2018-03-09] MEDS: MORPHINE SULFATE 2 MG/ML VIAL IVPUSH PRN (07:40)
[2018-03-09 08:36] LABS: CHLORIDE 103 mmol/L (98-107); SODIUM 136 mmol/L (136-145)
[2018-03-09 09:13] LABS: ALBUMIN 2.7 g/dl (3.4-5.0); ALK PHOS 68 U/L (45-117); ANION GAP 6 (8-16); BILIRUBIN,TOTAL 0.4 mg/dL (0.2-1.0); BLOOD UREA NITROGEN 30 mg/dL (7-18); CALCIUM 7.8 mg/dL (8.5-10.1); CO2 27 mmol/L (21-32); CREATININE 0.8 mg/dL (0.55-1.02); GLUCOSE,RANDOM 130 mg/dL (74-106); MAGNESIUM 2.2 mg/dL (1.8-2.4); PHOSPHOROUS 2.6 mg/dL (2.5-4.9); SGOT/AST 15 U/L (15-37); SGPT/ALT 14 U/L (12-78); TOT PROT 5.3 g/dl (6.4-8.2)
[2018-03-09] MEDS: HEPARIN NA (PORCINE) 5,000 UNITS/ML 1ML VIAL SQ SCH ×2 (10:32→21:12)
--- NOTE | 2018-03-09 12:21 | PN ---
Progress Note (short form) - Note Progress Note: Pt lying comf in bed. AFVSS LUE in cast LLE short and ER calves soft NT NV exam grossly intact HCT 28 A/p: L wrist fx -continue cast -elevate for swelling L hip fx -surgery cancelled today as pt had breakfast -will reschedule for tomorrow -NPO p midnight
--- NOTE | 2018-03-09 12:37 | PN ---
Progress Note, Physician History of Present Illness: Resting comfortably, no complaints. - Current Medication List Current Medications: Active Medications Acetaminophen (Tylenol -) 650 mg PO Q4H PRN PRN Reason: PAIN OR FEVER Heparin Sodium (Porcine) (Heparin -) 5,000 unit SQ BID [facility] Last Admin: 03/09/18 10:32 Dose: Not Given Sodium Chloride (Normal Saline -) 1,000 mls @ 75 mls/hr IV ASDIR CAMILO Last Admin: 03/09/18 06:49 Dose: 75 mls/hr Morphine Sulfate (Morphine Sulfate) 2 mg IVPUSH Q4H PRN PRN Reason: PAIN LEVEL 6-10 Last Admin: 03/09/18 07:40 Dose: 2 mg - Objective Vital Signs: Vital Signs Temperature 99.3 F 03/09/18 06:00 Pulse Rate 100 H 03/09/18 06:00 Respiratory Rate 22 03/09/18 06:00 Blood Pressure 136/65 03/09/18 06:00 O2 Sat by Pulse Oximetry (%) 92 L 03/08/18 21:00 Constitutional: Yes: No Distress, Calm Neck: Yes: Supple Cardiovascular: Yes: Regular Rate and Rhythm Respiratory: Yes: Regular, Diminished Gastrointestinal: Yes: Normal Bowel Sounds, Soft Edema: No Labs: CBC, BMP 03/09/18 06:00 03/09/18 06:00 INR, PTT INR 1.10 (0.83-1.09) H 03/07/18 16:00 Problem List - Problems (1) Pre-operative cardiovascular examination Code(s): Z01.810 - ENCOUNTER FOR PREPROCEDURAL CARDIOVASCULAR EXAMINATION (2) Dementia Code(s): F03.90 - UNSPECIFIED DEMENTIA WITHOUT BEHAVIORAL DISTURBANCE Qualifiers: Dementia type: unspecified type Dementia behavioral disturbance: with behavioral disturbance Qualified Code(s): F03.91 - Unspecified dementia with behavioral disturbance (3) HTN (hypertension) Code(s): I10 - ESSENTIAL (PRIMARY) HYPERTENSION Qualifiers: Hypertension type: essential hypertension Qualified Code(s): I10 - Essential (primary) hypertension (4) Hypercholesterolemia Code(s): E78.00 - PURE HYPERCHOLESTEROLEMIA, UNSPECIFIED (5) Wrist fracture, left Code(s): S62.102A - FRACTURE OF UNSP CARPAL BONE, LEFT WRIST, INIT FOR CLOS FX Qualifiers: Encounter type: initial encounter Fracture type: closed Qualified Code(s) : S62.102A - Fracture of unspecified carpal bone, left wrist, initial encounter for closed fracture (6) Intertrochanteric fracture of left hip Code(s): S72.142A - DISPLACED INTERTROCHANTERIC FRACTURE OF LEFT FEMUR, INIT Qualifiers: Encounter type: initial encounter Fracture type: closed Fracture alignment: displaced Qualified Code(s): S72.142A - Displaced intertrochanteric fracture of left femur, initial encounter for closed fracture Assessment/Plan 03/08/2018 Echo: Normal LV size with mild cLVH, normal RV size and fxn, tr TR, tr-mild MR 1. Left wrist fracture and left hip fracture s/p fall 2. HTN 3. Hypercholesterolemia 4. Organic brain syndrome/dementia PLAN: 1. Resume Lisinopril 20 qd as tolerated 2. Resume Zocor 20 qhs 3. Orthopedic plans OR in AM. There is no absolute contraindication in view of absence of ischemic symptoms, decompensated congestive heart failure of malignant arrhythmias, however; increased risk based on her advanced age. ASA held pre-op and to resume once post-op hemostasis achieved 4. DVT prophylaxis, analgesia as needed
--- NOTE | 2018-03-09 13:17 | PN ---
Teaching Attending Note Name of Resident: Cindy Roman ATTENDING PHYSICIAN STATEMENT I saw and evaluated the patient. I reviewed the resident's note and discussed the case with the resident. I agree with the resident's findings and plan as documented. SUBJECTIVE:states pain is controlled with medication. denies CP, SOB< fever, chills, leg swelling, BRBRPR, melena or hematuria OBJECTIVE: Last Vital Signs Temp Pulse Resp BP Pulse Ox 99.3 F 100 H 22 136/65 92 L 03/09/18 06:00 03/09/18 06:00 03/09/18 06:00 03/09/18 06:00 03/08/18 21:00 General NAD COWLITZ, CV S1 s2 + Lungs CTA B/L no wheezing/rales/rhonchi Extremities LUE in hard cast, able to move the digits without difficulty, good capillary refill unable to access radial pulse due to cast LLE +point tenderness of the hip. minimal swelling of the R thigh no hematoma identified. Leg is 56cm ASSESSMENT AND PLAN: 87yo F wtih PMH dementia and HTN presented to the ER after mechanical fall and sustained L wrist and L hip fracture 1. L hip fracture- s/p mechanical fall. pt is intermediate risk for intermediate risk procedure. accidentally received breakfast this AM. NPO tonight for surgery in the AM. will need JASON post-op. pain control 2. L wrist fracture- s/p manual reduction in the Er with cast applied. will need repeat imaging in several weeks. Ortho f/u outpatient. pain control 3. mechanical fall- due to non-compliance with RW. CT head showing chronic changes. PT eval 4. Microcytic anemia- some component of dilution. no obvious signs of bleeding. thigh is not significantly larger than the R. will monitor size. repeat CBC 5. Agitation- noted in the ER. s/p haldol and ativan. now alert. no repeat episodes 6. dementia- will need to obtain baseline. pleasantly confused 7. HTN- controlled. cont home medication 8. DVT ppx- hep sq 9. will need JASON on discharge
[2018-03-09] MEDS: LISINOPRIL 10 MG TABLET (FP) PO SCH (13:52)
[2018-03-09 15:35] LABS: BASO % 0.4 % (0-2.0); EOS % 0.3 % (0-4.5); HEMATOCRIT 28.2 % (32.4-45.2); HEMOGLOBIN 9.3 GM/dL (10.7-15.3); LYMPH % 10.8 % (8-40); MCH 29.8 pg (25.7-33.7); MCHC 33.1 g/dl (32.0-36.0); MEAN CELL VOLUME 90.1 fl (80-96); NEUT % 74.5 % (42.8-82.8); PLATELET COUNT 164 K/MM3 (134-434); RBC 3.13 M/mm3 (3.60-5.2); WHITE BLOOD COUNT 11.7 K/mm3 (4.0-10.0)
--- NOTE | 2018-03-09 18:37 | PN ---
Physical Exam: SUBJECTIVE: Patient seen and examined this morning at bedside. Has had no BM overnight. Does not complain of pain if at rest. Denies fevers, chills, chest pain, SOB, nausea, vomiting, diarrhea, constipation. OBJECTIVE: Vital Signs Period Temp Pulse Resp BP Sys/Lara Pulse Ox Last 24 Hr 99.0 F-99.3 F 87-104 20-22 130-142/57-70 92-95 GENERAL: AOx1 to person only, Hard of hearing EYES: PERRL, EOMI THROAT: Oropharynx clear without exudates, moist mucous membranes. LUNGS: Breath sounds equal, clear to auscultation bilaterally, no wheezes HEART: Regular rate and rhythm, S1, S2 without murmur, rub or gallop. ABDOMEN: Soft, Obese, nontender, nondistended, normoactive bowel sounds UPPER EXTREMITIES: Left wrist casted, unable to flex/extend digits, Radial pulses covered by hard cast, Capillary refill < 3 secs, mild tremors, C5-T1 gross sensation intact b/l. LOWER EXTREMITIES: Left hip pain present on palpation, No edema. L4-S1 gross sensation intact b/l Laboratory Results - last 24 hr 03/09/18 03/09/18 03/09/18 06:00 06:00 15:20 WBC 11.3 H 11.7 H RBC 3.16 L 3.13 L Hgb 9.6 L 9.3 L Hct 28.3 L D 28.2 L MCV 89.3 90.1 MCH 30.4 29.8 MCHC 34.0 33.1 RDW 12.9 13.0 Plt Count 157 164 MPV 8.1 8.0 Absolute Neuts (auto) 8.2 8.7 Neutrophils % 72.6 74.5 Lymphocytes % 12.9 10.8 Monocytes % 13.7 H D 14.0 H Eosinophils % 0.4 0.3 Basophils % 0.4 0.4 Nucleated RBC % 0 0 Sodium 136 Potassium 4.0 Chloride 103 Carbon Dioxide 27 Anion Gap 6 L BUN 30 H Creatinine 0.8 Creat Clearance w eGFR > 60 Random Glucose 130 H Calcium 7.8 L Phosphorus 2.6 Magnesium 2.2 Total Bilirubin 0.4 AST 15 ALT 14 Alkaline Phosphatase 68 D Total Protein 5.3 L Albumin 2.7 L Active Medications Acetaminophen (Tylenol -) 650 mg PO Q4H PRN PRN Reason: PAIN OR FEVER Atorvastatin Calcium (Lipitor -) 20 mg PO HS [facility] Donepezil HCl (Aricept -) 10 mg PO DAILY [facility] Fluoxetine HCl (Prozac -) 10 mg PO DAILY [facility] Heparin Sodium (Porcine) (Heparin -) 5,000 unit SQ BID [facility] Last Admin: 03/09/18 10:32 Dose: Not Given Sodium Chloride (Normal Saline -) 1,000 mls @ 75 mls/hr IV ASDIR [facility] Last Admin: 03/09/18 06:49 Dose: 75 mls/hr Lisinopril (Prinivil) 10 mg PO DAILY [facility] Last Admin: 03/09/18 13:52 Dose: 10 mg Morphine Sulfate (Morphine Sulfate) 2 mg IVPUSH Q4H PRN PRN Reason: PAIN LEVEL 6-10 Last Admin: 03/09/18 07:40 Dose: 2 mg IMAGING: - X-ray of the pelvis and left hip: There is a comminuted fracture of the left the femoral intratrochanteric bone with displaced fragments and avulsion of the lesser trochanter. On the crosstable lateral view, there is very poor visualization of the left femoral neck and intertrochanteric region, due to technique with suggestion of mild anterior displacement of the distal femoral shaft. Correlate clinically - X-ray of the left elbow: No gross fracture or dislocation identified - X-ray of the left wrist: Displaced fracture of the distal radius with posterior/ lateral displacement of the distal segment. - X-ray of the left wrist: Previously visualized distal radial fracture appears to be in satisfactory alignment with residual minimal displacement. Avulsion fracture of the ulnar styloid process is again seen. - CXR: [id number] cardiomegaly with moderate to marked atherosclerotic uncoiling of the aortic arch. Mild bilateral increased lung markings without evidence of acute lung disease. - CT Brain: Generalized volume loss and moderate to marked ventricular dilatation. Lateral and third ventricles are relatively more dilated than the fourth, likely due to central atrophy. Cannot rule out normal pressure hydrocephalus or aqueduct of Sylvius narrowing/stenosis. Correlate clinically for further evaluation and follow-up - CT Cervical spine: The alignment is satisfactory. No gross fracture or subluxation is seen. ASSESSMENT/PLAN: 87 year old female with past medical history of dementia was brought in by EMS after a fall. According to her friend, she fell in her room and was found on the floor. Patient complained of left wrist pain. 1. Fracture, L Hip - S/P Mechanical fall due to noncompliance with rolling walker - Left hip pain present on palpation, No edema. L4-S1 gross sensation intact b/l - X-ray of the pelvis and left hip: Comminuted fracture of the left the femoral intratrochanteric bone with displaced fragments and avulsion of the lesser trochanter - Patient is intermediate risk for intermediate risk procedure - Continue Normal Saline @ 75 mls/hr IV - NPO after midnight - Fall precaution - Continue Acetaminophen 650 mg PO Q4H PRN - Continue Morphine 2 mg IVPUSH Q4H PRN - Orthopedics (Dr. Bob) consulted, appreciate Rec's, Pt requires IM nail of left hip, surgery tomorrow 2. Fracture, L wrist - S/P Mechanical fall due to noncompliance with rolling walker - X-ray of the left elbow: No gross fracture or dislocation identified - X-ray of the left wrist: Displaced fracture of the distal radius with posterior/ lateral displacement of the distal segment. - X-ray of the left wrist: Previously visualized distal radial fracture appears to be in satisfactory alignment with residual minimal displacement. Avulsion fracture of the ulnar styloid process is again seen. - S/P Left wrist manual reduction in the ED. - Will need repeat imaging in several weeks, F/U Ortho outpatient - Continue Acetaminophen 650 mg PO Q4H PRN - Continue Morphine 2 mg IVPUSH Q4H PRN - Orthopedics (Dr. Bob) consulted, appreciate Rec's, Elevate LUE for swelling. 3. Anemia - Hgb 11.4 --> 9.6 - Repeat Hgb 9.3 - No obvious signs of bleeding - Left thigh circumference measured at 56cm, not significantly larger than right - Continue to monitor size 4. HTN - Controlled, today 130-142/57-70 - Continue home dose Lisinopril 10 mg PO DAILY 5. HLD - Continue home dose Atorvastatin 20 mg PO HS 6. Dementia - Continue home dose Donepezil 10 mg PO DAILY 7. ?Depression - Continue home dose Fluoxetine 10 mg PO DAILY 8. FEN - Normal Saline @ 75 mls/hr IV - Lytes WNL, replete as needed - Sodium controlled diet 9. PPx - DVT: Heparin 5,000 unit SQ BID [facility] Dispo: admit to med-surg, suygery tmrw Visit type - Emergency Visit Emergency Visit: Yes ED Registration Date: 03/07/18 Care time: The patient presented to the Emergency Department on the above date and was hospitalized for further evaluation of their emergent condition. - New Patient This patient is new to me today: No - Critical Care Critical Care patient: No
[2018-03-09] MEDS ORDERED: ATORVASTATIN CA 20 MG TABLET (FP) PO SCH (22:00)
[2018-03-10] MEDS: MORPHINE SULFATE 2 MG/ML VIAL IVPUSH PRN ×2 (00:01→10:44)
[2018-03-10 08:38] LABS: HEMATOCRIT 27.3 % (32.4-45.2); HEMOGLOBIN 9.1 GM/dL (10.7-15.3); MCHC 33.2 g/dl (32.0-36.0); MEAN CELL VOLUME 90.4 fl (80-96); MEAN PLT VOLUME 7.5 fl (7.5-11.1); PLATELET COUNT 155 K/MM3 (134-434); RBC 3.01 M/mm3 (3.60-5.2); RDW 13.2 % (11.6-15.6); WHITE BLOOD COUNT 13.3 K/mm3 (4.0-10.0)
[2018-03-10] MEDS ORDERED: DONEPEZIL HCL 10 MG TABLET (FP) PO SCH (10:00)
[2018-03-10] MEDS ORDERED: FLUoxetine HCL 10 MG TABLET PO SCH (10:00)
[2018-03-10] MEDS: HEPARIN NA (PORCINE) 5,000 UNITS/ML 1ML VIAL SQ SCH (10:01)
[2018-03-10] MEDS ORDERED: ACETAMINOPHEN 1000 MG/100 ML VIAL (NON FORMULARY) IVPB PRN ×2 (10:20→16:47)
[2018-03-10] MEDS: SODIUM CHLORIDE 1,000 ML IV SCH (10:40)
[2018-03-10] MEDS: LISINOPRIL 10 MG TABLET (FP) PO SCH (11:15)
[2018-03-10 12:47] LABS: URINE APPEARANCE SLCLOUDY; URINE BILIRUBIN NEGATIVE (<2.0 mg/dL); URINE COLOR YELLOW; URINE GLUCOSE (UA) NEGATIVE (NEGATIVE); URINE KETONE 1+ (NEGATIVE); URINE LEUK ESTERASE NEGATIVE (NEGATIVE); URINE NITRITE NEGATIVE (NEGATIVE); URINE UROBILINOGEN NEGATIVE mg/dL (0.2-1.0)
[2018-03-10 12:52] LABS: URINE PROTEIN 1+ (NEGATIVE)
[2018-03-10 12:55] LABS: EPI CELLS RARE /HPF (FEW); URINE BACTERIA RARE /hpf (NONE SEEN); URINE MUCUS RARE
--- NOTE | 2018-03-10 12:59 | PN ---
Teaching Attending Note Name of Resident: Cindy Roman ATTENDING PHYSICIAN STATEMENT I saw and evaluated the patient. I reviewed the resident's note and discussed the case with the resident. I agree with the resident's findings and plan as documented. SUBJECTIVE:asymptomatic. denies CP, SOB, fever, chills, N/V/C/D OBJECTIVE: Last Vital Signs Temp Pulse Resp BP Pulse Ox 99.9 F H 98 H 18 141/53 94 L 03/10/18 12:39 03/10/18 12:39 03/10/18 10:00 03/10/18 12:39 03/09/18 21:00 General NAD [place], A&O x1 (self only) CV S1 s2 + Lungs CTA B/L no wheezing/rales/rhonchi Extremities LUE in hard cast, able to move the digits without difficulty, good capillary refill unable to access radial pulse due to cast LLE +point tenderness of the hip. minimal swelling of the R thigh no hematoma identified. Leg is 53cm ASSESSMENT AND PLAN: 87yo F wtih PMH dementia and HTN presented to the ER after mechanical fall and sustained L wrist and L hip fracture 1. L hip fracture- s/p mechanical fall. NPO for surgery today. further recommendations per ortho. PT post-op pain control. 2. L wrist fracture- s/p manual reduction in the ER with cast applied. will need repeat imaging in several weeks. Ortho f/u outpatient. pain control 3. mechanical fall- due to non-compliance with RW. CT head showing chronic changes. PT eval 4. Microcytic anemia- some component of dilution. no obvious signs of bleeding. thigh is not significantly larger than the R. size stable. CBC is stable. cont to monitor. 5. Agitation- noted in the ER. s/p haldol and ativan. now alert. no repeat episodes 6. dementia- will need to obtain baseline. pleasantly confused 7. HTN- controlled. cont home medication 8. DVT ppx- hep sq 9. will need JASON on discharge
[2018-03-10] MEDS ORDERED: BUPIVACAINE HCL/PF 0.5% (5MG/ML) 10 ML VIAL ONE (13:34)
[2018-03-10] MEDS ORDERED: SEVOFLURANE 250 ML BTL ONE (13:34)
[2018-03-10] MEDS ORDERED: DESFLURANE GAS 240 ML BOTTLE IH ONE (13:35)
[2018-03-10] MEDS ORDERED: PHENYLEPHRINE HCL 10 MG/1 ML SINGLE DOSE VIAL ONE (13:38)
[2018-03-10] MEDS ORDERED: PROPOFOL 20 ML ONE ×2 (13:38→14:24)
[2018-03-10] MEDS ORDERED: SUCCINYLCHOLINE CHLORIDE 200 MG/10 ML VIAL ONE (13:38)
--- NOTE | 2018-03-10 13:45 | OP ---
Operative Note - Note: Operative Date: 03/10/18 Pre-Operative Diagnosis: left hip IT fx Operation: left hip intramedullary nail Implants: [id number] gamma 3 [id number] 90mm lag 35mm lock Post-Operative Diagnosis: Same as Pre-op Surgeon: Jose Elias Bob Anesthesiologist/CATEGORY MANAGER: Delonte Lamb Anesthesia: Spinal Estimated Blood Loss (mls): 50 Operative Report Dictated: Yes
[2018-03-10] MEDS ORDERED: ceFAZolin SODIUM 1 GM VIAL IVPB ONE (13:57)
[2018-03-10] MEDS ORDERED: TRANEXAMIC ACID 1000 MG/10 ML VIAL ONE (14:51)
[2018-03-10] MEDS ORDERED: ONDANSETRON 4 MG/2 ML VIAL IVPUSH PRN (15:37)
[2018-03-10] MEDS ORDERED: LACTATED RINGERS SOLUTION 1,000 ML IV SCH (15:45)
--- NOTE | 2018-03-10 16:17 | PN ---
Physical Exam: SUBJECTIVE: Patient seen and examined this morning at bedside. Denies fevers, chills, chest pain, SOB, nausea, vomiting, diarrhea, constipation. OBJECTIVE: Vital Signs Period Temp Pulse Resp BP Sys/Lara Pulse Ox Last 24 Hr 98.2 F-102.2 F 77-106 18-20 141-174/45-75 90-97 GENERAL: AOx1 to person only, Hard of hearing, in no acute distress EYES: PERRL, EOMI THROAT: Oropharynx clear without exudates, moist mucous membranes. LUNGS: Breath sounds equal, clear to auscultation bilaterally, no wheezes HEART: Regular rate and rhythm, S1, S2 without murmur. ABDOMEN: Soft, Obese, nontender, nondistended, normoactive bowel sounds UPPER EXTREMITIES: Left wrist casted, Radial pulses covered by hard cast, Capillary refill < 3 secs, mild tremors, C5-T1 gross sensation intact LOWER EXTREMITIES: Left hip pain present on palpation, No edema. L4-S1 gross sensation intact b/l, No hematoma identified, Left thigh circumference 53cm Laboratory Results - last 24 hr 03/10/18 03/10/18 08:19 11:00 WBC 13.3 H RBC 3.01 L Hgb 9.1 L Hct 27.3 L MCV 90.4 MCH 30.0 MCHC 33.2 RDW 13.2 Plt Count 155 MPV 7.5 Urine Color Yellow Urine Appearance Slcloudy Urine pH 5.0 Ur Specific Carson 1.020 Urine Protein 1+ H Urine Glucose (UA) Negative Urine Ketones 1+ H Urine Blood 1+ H Urine Nitrite Negative Urine Bilirubin Negative Urine Urobilinogen Negative Ur Leukocyte Esterase Negative Urine WBC (Auto) 4 Urine RBC (Auto) 3 Ur Epithelial Cells Rare Urine Bacteria Rare Urine Mucus Rare Active Medications Acetaminophen (Tylenol -) 650 mg PO Q4H PRN PRN Reason: PAIN OR FEVER Acetaminophen (Ofirmev Injection -) 1,000 mg IVPB Q6H PRN PRN Reason: FEVER Last Admin: 03/10/18 11:39 Dose: 1,000 mg Atorvastatin Calcium (Lipitor -) 20 mg PO HS [facility] Last Admin: 03/09/18 21:12 Dose: 20 mg Donepezil HCl (Aricept -) 10 mg PO DAILY [facility] Last Admin: 03/10/18 10:01 Dose: Not Given Enoxaparin Sodium (Lovenox -) 40 mg SQ DAILY [facility] Fentanyl (Sublimaze Injection -) 50 mcg IVPUSH [id number] PRN PRN Reason: PAIN-PACU ORDER X 4 DOSES ONLY Fluoxetine HCl (Prozac -) 10 mg PO DAILY [facility] Last Admin: 03/10/18 11:15 Dose: Not Given Sodium Chloride (Normal Saline -) 1,000 mls @ 75 mls/hr IV ASDIR [facility] Last Admin: 03/10/18 10:40 Dose: 75 mls/hr Lactated Ringer's (Lactated Ringers Solution) 1,000 mls @ 75 mls/hr IV ASDIR [facility] Lisinopril (Prinivil) 10 mg PO DAILY [facility] Last Admin: 03/10/18 11:15 Dose: 10 mg Morphine Sulfate (Morphine Sulfate) 2 mg IVPUSH Q4H PRN PRN Reason: PAIN LEVEL 6-10 Last Admin: 03/10/18 10:44 Dose: 2 mg Ondansetron HCl (Zofran Injection) 4 mg IVPUSH Q6H PRN PRN Reason: NAUSEA AND/OR VOMITING IMAGING: - X-ray of the pelvis and left hip: There is a comminuted fracture of the left the femoral intratrochanteric bone with displaced fragments and avulsion of the lesser trochanter. On the crosstable lateral view, there is very poor visualization of the left femoral neck and intertrochanteric region, due to technique with suggestion of mild anterior displacement of the distal femoral shaft. Correlate clinically - X-ray of the left elbow: No gross fracture or dislocation identified - X-ray of the left wrist: Displaced fracture of the distal radius with posterior/ lateral displacement of the distal segment. - X-ray of the left wrist: Previously visualized distal radial fracture appears to be in satisfactory alignment with residual minimal displacement. Avulsion fracture of the ulnar styloid process is again seen. - CXR: [id number] cardiomegaly with moderate to marked atherosclerotic uncoiling of the aortic arch. Mild bilateral increased lung markings without evidence of acute lung disease. - CT Brain: Generalized volume loss and moderate to marked ventricular dilatation. Lateral and third ventricles are relatively more dilated than the fourth, likely due to central atrophy. Cannot rule out normal pressure hydrocephalus or aqueduct of Sylvius narrowing/stenosis. Correlate clinically for further evaluation and follow-up - CT Cervical spine: The alignment is satisfactory. No gross fracture or subluxation is seen. ASSESSMENT/PLAN: 87 year old female with past medical history of dementia was brought in by EMS after a fall. According to her friend, she fell in her room and was found on the floor. Patient complained of left wrist pain. 1. Fracture, L Hip - S/P Mechanical fall due to noncompliance with rolling walker - Left hip pain present on palpation, No edema. L4-S1 gross sensation intact b/l , No hematoma identified, Left thigh circumference 53cm - X-ray of the pelvis and left hip: Comminuted fracture of the left the femoral intratrochanteric bone with displaced fragments and avulsion of the lesser trochanter - Patient is intermediate risk for intermediate risk procedure - Continue Normal Saline @ 75 mls/hr IV - Fall precaution - Continue Acetaminophen 650 mg PO Q4H PRN - Continue Morphine 2 mg IVPUSH Q4H PRN - NPO after midnight - Orthopedics (Dr. Bob) consulted, appreciate Rec's, Pt requires IM nail of left hip, surgery today, will follow further recommendations, post-op pain control 2. Fracture, L wrist - S/P Mechanical fall due to noncompliance with rolling walker - X-ray of the left elbow: No gross fracture or dislocation identified - X-ray of the left wrist: Displaced fracture of the distal radius with posterior/ lateral displacement of the distal segment. - X-ray of the left wrist: Previously visualized distal radial fracture appears to be in satisfactory alignment with residual minimal displacement. Avulsion fracture of the ulnar styloid process is again seen. - S/P Left wrist manual reduction in the ED. - Continue Acetaminophen 650 mg PO Q4H PRN - Continue Morphine 2 mg IVPUSH Q4H PRN - Orthopedics (Dr. Bob) consulted, appreciate Rec's, Elevate LUE for swelling - Will need repeat imaging in several weeks, F/U Ortho outpatient 3. Anemia - Hgb 11.4 --> 9.6 - Repeat Hgb 9.3 - No obvious signs of bleeding - Left thigh circumference initially measured at 56cm, today measured at 53, not significantly larger than right - Continue to monitor size 4. HTN - Controlled, today 130-142/57-70 - Continue home dose Lisinopril 10 mg PO DAILY 5. HLD - Continue home dose Atorvastatin 20 mg PO HS 6. Dementia - Continue home dose Donepezil 10 mg PO DAILY 7. ?Depression - Continue home dose Fluoxetine 10 mg PO DAILY 8. FEN - Normal Saline @ 75 mls/hr IV - Lytes WNL, replete as needed - Sodium controlled diet 9. PPx - DVT: Heparin 5,000 unit SQ BID [facility] Visit type - Emergency Visit Emergency Visit: Yes ED Registration Date: 03/07/18 Care time: The patient presented to the Emergency Department on the above date and was hospitalized for further evaluation of their emergent condition. - New Patient This patient is new to me today: No - Critical Care Critical Care patient: No
[2018-03-10] MEDS ORDERED: MAGNESIUM HYDROX 2400MG/30ML ORAL SUSPENSION 30 ML CUP PO PRN (16:47)
[2018-03-10] MEDS ORDERED: ACETAMINOPHEN 325 MG TABLET (FP) PO PRN (16:47)
[2018-03-10] MEDS ORDERED: MORPHINE SULFATE 2 MG/ML VIAL IVPUSH PRN (16:47)
[2018-03-10] MEDS: CEFAZOLIN 1 GM in DEXTROSE 5%-WATER - 50 ML IVPB SCH (17:44)
[2018-03-10] MEDS ORDERED: ceFAZolin SODIUM 1 GM VIAL ONE (17:46)
[2018-03-10 21:16] LABS: BASO % 0.3 % (0-2.0); EOS % 0.3 % (0-4.5); HEMATOCRIT 27.8 % (32.4-45.2); HEMOGLOBIN 9.1 GM/dL (10.7-15.3); LYMPH % 7.9 % (8-40); MCH 30.3 pg (25.7-33.7); MCHC 32.7 g/dl (32.0-36.0); MEAN CELL VOLUME 92.8 fl (80-96); MEAN PLT VOLUME 8.4 fl (7.5-11.1); MONO % 13.8 % (3.8-10.2); NEUT % 77.7 % (42.8-82.8); PLATELET COUNT 130 K/MM3 (134-434); RDW 13.2 % (11.6-15.6); WHITE BLOOD COUNT 15.3 K/mm3 (4.0-10.0)
[2018-03-10] MEDS: DOCUSATE SODIUM 100 MG CAPSULE (FP) PO SCH (21:43)
[2018-03-10] MEDS: CALCIUM 500MG/VIT-D 200 UNITS COMBO TABLET (FP) PO SCH (21:43)
[2018-03-10] MEDS: ATORVASTATIN CA 20 MG TABLET (FP) PO SCH (21:43)
[2018-03-11] MEDS ORDERED: ceFAZolin SODIUM 1 GM VIAL ONE ×2 (00:56→09:58)
[2018-03-11] MEDS ORDERED: DEXTROSE 5%-WATER - 50 ML IVPB ONE ×2 (00:56→09:58)
[2018-03-11] MEDS: CEFAZOLIN 1 GM in DEXTROSE 5%-WATER - 50 ML IVPB SCH ×2 (01:03→10:48)
[2018-03-11] MEDS: DOCUSATE SODIUM 100 MG CAPSULE (FP) PO SCH ×3 (07:02→21:53)
--- NOTE | 2018-03-11 07:41 | PN ---
Progress Note (short form) - Note Progress Note: Pt lying comf in bed. Last Vital Signs Temp Pulse Resp BP Pulse Ox 99.1 F 91 H 18 124/46 100 03/11/18 06:00 03/11/18 06:00 03/11/18 06:00 03/11/18 06:00 03/10/18 21:00 LUE in cast LLE dressings with small spotting calves soft NT NV exam grossly intact HCT p A/p: L wrist fx -continue cast -elevate for swelling L hip fx -pt to start PT -follow up cbc, use iron for post surgical anemia -pain control, minimize narcotics -dvt proph -oob
--- NOTE | 2018-03-11 07:53 | PN ---
Progress Note (short form) - Note Progress Note: Anesthesia Post-op Note Pt s/p left gamma nail on 03/10/18 under spinal. Pt reports that she is feeling well. Reports pain and nausea under controlled. Able to move legs and reports normal motor and sensation. Vital Signs Temperature 99.1 F 03/11/18 06:00 Pulse Rate 91 H 03/11/18 06:00 Respiratory Rate 18 03/11/18 06:00 Blood Pressure 124/46 03/11/18 06:00 O2 Sat by Pulse Oximetry (%) 100 03/10/18 21:00 Continue current management. OOB. Encourage ISS. Bowel regimen with pain medication.
--- NOTE | 2018-03-11 08:25 | PN ---
Teaching Attending Note Name of Resident: Cindy Roman ATTENDING PHYSICIAN STATEMENT I saw and evaluated the patient. I reviewed the resident's note and discussed the case with the resident. I agree with the resident's findings and plan as documented. SUBJECTIVE: Patient is comfortable with no acute distress. OBJECTIVE: Vital Signs Temperature 99.1 F 03/11/18 06:00 Pulse Rate 91 H 03/11/18 06:00 Respiratory Rate 18 03/11/18 06:00 Blood Pressure 124/46 03/11/18 06:00 O2 Sat by Pulse Oximetry (%) 100 03/10/18 21:00 CBCD WBC 15.3 K/mm3 (4.0-10.0) H 03/10/18 20:30 RBC 3.00 M/mm3 (3.60-5.2) L 03/10/18 20:30 Hgb 9.1 GM/dL (10.7-15.3) L 03/10/18 20:30 Hct 27.8 % (32.4-45.2) L 03/10/18 20:30 MCV 92.8 fl (80-96) 03/10/18 20:30 MCHC 32.7 g/dl (32.0-36.0) 03/10/18 20:30 RDW 13.2 % (11.6-15.6) 03/10/18 20:30 Plt Count 130 K/MM3 (134-434) L 03/10/18 20:30 MPV 8.4 fl (7.5-11.1) D 03/10/18 20:30 CMP Sodium 136 mmol/L (136-145) 03/09/18 06:00 Potassium 4.0 mmol/L (3.5-5.1) 03/09/18 06:00 Chloride 103 mmol/L (98-107) 03/09/18 06:00 Carbon Dioxide 27 mmol/L (21-32) 03/09/18 06:00 Anion Gap 6 (8-16) L 03/09/18 06:00 BUN 30 mg/dL (7-18) H 03/09/18 06:00 Creatinine 0.8 mg/dL (0.55-1.02) 03/09/18 06:00 Creat Clearance w eGFR > 60 (>60) 03/09/18 06:00 Random Glucose 130 mg/dL (74-106) H 03/09/18 06:00 Calcium 7.8 mg/dL (8.5-10.1) L 03/09/18 06:00 Total Bilirubin 0.4 mg/dL (0.2-1.0) 03/09/18 06:00 AST 15 U/L (15-37) 03/09/18 06:00 ALT 14 U/L (12-78) 03/09/18 06:00 Alkaline Phosphatase 68 U/L (45-117) D 03/09/18 06:00 Total Protein 5.3 g/dl (6.4-8.2) L 03/09/18 06:00 Albumin 2.7 g/dl (3.4-5.0) L 03/09/18 06:00 CARDIAC ENZYMES Creatine Kinase 166 IU/L (26-192) 03/08/18 06:20 Troponin I < 0.02 ng/ml (0.00-0.05) 03/07/18 16:00 Current Medications Generic Name Dose Route Start Last Admin Trade Name Freq PRN Reason Stop Dose Admin Acetaminophen 650 mg 03/10/18 16:47 Tylenol - PO Q4H PRN FEVER Acetaminophen 1,000 mg 03/10/18 16:47 Ofirmev Injection - IVPB Q6H PRN FEVER Atorvastatin Calcium 20 mg 03/10/18 22:00 03/10/18 21:43 Lipitor - PO 20 mg HS [facility] Administration Calcium Carbonate/Cholecalciferol 1 tab 03/10/18 22:00 03/10/18 21:43 Os-Nicolas 500+D - PO 1 tab BID [facility] Administration Docusate Sodium 100 mg 03/10/18 22:00 03/11/18 07:02 Colace - PO 100 mg TID [facility] Administration Donepezil HCl 10 mg 03/11/18 22:00 Aricept - PO HS [facility] Enoxaparin Sodium 40 mg 03/11/18 10:00 Lovenox - SQ DAILY [facility] Fentanyl 50 mcg 03/10/18 15:37 03/10/18 17:10 Sublimaze Injection - IVPUSH 50 mcg [id number] PRN Administration PAIN-PACU ORDER X 4 DOSES ONLY Ferrous Sulfate 325 mg 03/10/18 17:30 Feosol - PO BIDWM [facility] Fluoxetine HCl 10 mg 03/11/18 10:00 Prozac - PO DAILY [facility] Cefazolin Sodium 1 gm/ 50 mls @ 100 mls/hr 03/10/18 18:00 03/11/18 01:03 Dextrose IVPB 03/11/18 17:59 100 mls/hr Q8H-IV [facility] Administration Lisinopril 10 mg 03/11/18 10:00 Prinivil PO DAILY [facility] Magnesium Hydroxide 30 ml 03/10/18 16:47 Milk Of Magnesia - PO DAILY PRN CONSTIPATION Morphine Sulfate 2 mg 03/10/18 16:47 03/10/18 21:46 Morphine Sulfate IVPUSH 2 mg Q4H PRN Administration PAIN LEVEL 6-10 Ondansetron HCl 4 mg 03/10/18 15:37 Zofran Injection IVPUSH Q6H PRN NAUSEA AND/OR VOMITING Home Medications Medication Instructions Recorded Acetaminophen [Tylenol] 650 mg PO DAILY PRN 03/07/18 Aspirin 81 mg PO DAILY 03/07/18 Bimatoprost [Lumigan] 1 drop IO DAILY 03/07/18 Calcium Carbonate/Vitamin D3 1 each PO DAILY 03/07/18 [Oyster Shell 500-Vit D3 200 Tb] Cholecalciferol (Vitamin D3) 1,000 unit PO DAILY 03/07/18 [Vitamin D3] Donepezil HCl [Aricept -] 10 mg PO DAILY 03/07/18 Fluoxetine HCl [Sarafem] 10 mg PO DAILY 03/07/18 Fluticasone Prop 0.05% Nasal 1 - 2 spray NS DAILY 03/07/18 [Flonase -] Lisinopril [Prinivil] 20 mg PO DAILY 03/07/18 Memantine HCl [Namenda -] 10 mg PO DAILY 03/07/18 Simvastatin [Zocor -] 20 mg PO HS 03/07/18 clonazePAM [Klonopin -] 0.5 mg PO DAILY 03/07/18 Polyvinyl Alcohol [Artificial 1 drop OS TID 03/08/18 Tears] Timolol 0.25% [Timoptic 0.25%] 1 drop OD BID 03/08/18 General NAD HYDABURG, A&O x1 (self only) CV S1 s2 + Lungs CTA B/L no wheezing/rales/rhonchi Extremities LUE in hard cast, able to move the digits without difficulty, good capillary refill unable to access radial pulse due to cast LLE +point tenderness of the hip. minimal swelling of the R thigh no hematoma identified. Leg is 53cm ASSESSMENT AND PLAN: Patient is a 87yo F wtih PMH dementia and HTN presented to the ER after mechanical fall and sustained L wrist and L hip fracture # L hip fracture- s/p mechanical fall. POD#1 . #. L wrist fracture- s/p manual reduction in the ER with cast applied. will need repeat imaging in several weeks. continue pain control # mechanical fall- due to non-compliance with RW. CT head showing chronic changes. PT eval # Microcytic anemia- some component of dilution. no obvious signs of bleeding. thigh is not significantly larger than the R. size stable. CBC is stable. # Agitation- noted in the ER. s/p haldol and ativan. now alert. no repeat episodes # dementia- improving # HTN- controlled. cont home medication DVT ppx- hep sq
[2018-03-11 08:41] LABS: ANION GAP 7 (8-16); BLOOD UREA NITROGEN 18 mg/dL (7-18); CALCIUM 7.1 mg/dL (8.5-10.1); CHLORIDE 110 mmol/L (98-107); CO2 26 mmol/L (21-32); GLUCOSE,RANDOM 123 mg/dL (74-106); POTASSIUM 3.9 mmol/L (3.5-5.1); SODIUM 143 mmol/L (136-145)
[2018-03-11 08:42] LABS: CREATININE 0.5 mg/dL (0.55-1.02)
--- NOTE | 2018-03-11 09:13 | OP ---
DATE OF OPERATION: 03/10/2018 PREOPERATIVE DIAGNOSIS: Left hip intertrochanteric fracture. POSTOPERATIVE DIAGNOSIS: Left hip intertrochanteric fracture. PROCEDURE: Left hip intramedullary nail. SURGEON: Jose Elias Bob MD ANESTHESIA: Spinal. POSTOPERATIVE CONDITION: Stable. COMPLICATIONS: None. IMPLANTS: nail 10 x 1 cm x 125, 10.5 x 90 mm lag screw, and 5 mm x 35 mm distal lock screw. BLOOD LOSS: 50 mL INDICATIONS: This is a pleasant woman with some dementia, who had suffered a fall. She was found to have a wrist fracture as well as a hip fracture. Wrist fracture was treated closed and her hip fracture was going to be treated open. We reviewed , her medical proxy, the option of nonoperative care of prolonged bedrest. I recommended operative care. This would involve intramedullary nailing. I reviewed the procedure with her. I reviewed surgical risks including bleeding, infection, neurovascular injury, need for further surgery, postoperative pain and stiffness, nonunion, malunion, hardware failure, or cutout. I discussed medical risks such as heart attack, stroke, DVT, PE, and . I addressed all the sister's and patient's concerns who voiced understanding and elected to proceed. DESCRIPTION OF PROCEDURE: The patient was brought to the operating room where spinal anesthesia was administered. She was then placed on the fracture table, careful to pad all the bony prominences. The left lower extremity was then prepped and draped in the usual sterile fashion. A preoperative dose of antibiotics was given, and the usual timeout procedure was performed. The incision site was then marked out utilizing radiographic guidance. It should be noted that prior to starting the procedure, the leg was positioned into traction, adduction, and internal rotation in order to reduce the fracture. Preoperative fluoroscopy was satisfactory. The incision was now made proximal to the greater trochanter. A guidewire was inserted into the tip of the greater trochanter, then down into the canal. An opening reamer was then passed over it, maintaining care to protect the soft tissues. The guidewire and reamer were now removed. The nail was inserted into the femoral canal. Nail placement was verified fluoroscopically. Trocar was now inserted through the jig and an incision made in the lateral thigh. The trocar was inserted to the level of the cortex. Trocar placement was confirmed fluoroscopically in 2 planes. A guidewire was then advanced down the center of the femoral neck into the center of the femoral head. Guidewire placement was confirmed fluoroscopically in 2 planes. The guidewire was measured. A 90-mm lag screw was chosen. The screw was then reamed mm and a 90-mm screw was inserted. The set screw was then inserted, backed off a quarter turn to allow for compression. The distal trocar through the distal part of the same incision, drilled, measured, and the screw was then inserted. At this point, the entire construct was examined fluoroscopically. Both fracture reduction and hardware placement were satisfactory. The wounds were now closed using 2-0 Vicryl subcutaneously and through the skin. Sterile dressings were placed. The patient was transferred to recovery room in stable condition. Rahul VERNON/[id number]
[2018-03-11] MEDS ORDERED: LISINOPRIL 10 MG TABLET (FP) PO SCH (10:00)
[2018-03-11] MEDS ORDERED: MORPHINE SULFATE 2 MG/ML VIAL IVPUSH PRN (10:47)
[2018-03-11] MEDS: CALCIUM 500MG/VIT-D 200 UNITS COMBO TABLET (FP) PO SCH ×2 (10:48→21:52)
[2018-03-11] MEDS: FLUoxetine HCL 10 MG CAPSULE (FP) PO SCH (10:48)
[2018-03-11] MEDS: ENOXAPARIN NA (PORCINE) 40 MG/0.4 ML DISP.SYRIN SQ SCH (10:49)
[2018-03-11] MEDS: FERROUS SO4 325 MG TABLET (FP) PO SCH ×3 (10:52→17:23)
[2018-03-11 11:02] LABS: BASO % 1.1 % (0-2.0); EOS % 0.5 % (0-4.5); HEMATOCRIT 26.3 % (32.4-45.2); HEMOGLOBIN 8.5 GM/dL (10.7-15.3); LYMPH % 7.4 % (8-40); MCH 29.8 pg (25.7-33.7); MCHC 32.5 g/dl (32.0-36.0); MEAN CELL VOLUME 91.8 fl (80-96); MEAN PLT VOLUME 8.7 fl (7.5-11.1); MONO % 11.2 % (3.8-10.2); NEUT % 79.8 % (42.8-82.8); PLATELET COUNT 187 K/MM3 (134-434); RBC 2.86 M/mm3 (3.60-5.2); RDW 13.2 % (11.6-15.6); WHITE BLOOD COUNT 13.3 K/mm3 (4.0-10.0)
--- NOTE | 2018-03-11 11:44 | PN ---
Progress Note, Physician History of Present Illness: Resting comfortably, no complaints. - Current Medication List Current Medications: Active Medications Acetaminophen (Tylenol -) 650 mg PO Q4H PRN PRN Reason: FEVER Acetaminophen (Ofirmev Injection -) 1,000 mg IVPB Q6H PRN PRN Reason: FEVER Atorvastatin Calcium (Lipitor -) 20 mg PO HS [facility] Last Admin: 03/10/18 21:43 Dose: 20 mg Calcium Carbonate/Cholecalciferol (Os-Nicolas 500+D -) 1 tab PO BID [facility] Last Admin: 03/11/18 10:48 Dose: 1 tab Docusate Sodium (Colace -) 100 mg PO TID [facility] Last Admin: 03/11/18 07:02 Dose: 100 mg Donepezil HCl (Aricept -) 10 mg PO HS [facility] Enoxaparin Sodium (Lovenox -) 40 mg SQ DAILY [facility] Last Admin: 03/11/18 10:49 Dose: 40 mg Fentanyl (Sublimaze Injection -) 50 mcg IVPUSH [id number] PRN PRN Reason: PAIN-PACU ORDER X 4 DOSES ONLY Last Admin: 03/10/18 17:10 Dose: 50 mcg Ferrous Sulfate (Feosol -) 325 mg PO BIDWM [facility] Last Admin: 03/11/18 10:52 Dose: 325 mg Fluoxetine HCl (Prozac -) 10 mg PO DAILY [facility] Last Admin: 03/11/18 10:48 Dose: 10 mg Cefazolin Sodium 1 gm/ (Dextrose) 50 mls @ 100 mls/hr IVPB Q8H-IV [facility] Stop: 03/11/18 17:59 Last Admin: 03/11/18 10:48 Dose: 100 mls/hr Lisinopril (Prinivil) 10 mg PO DAILY [facility] Last Admin: 03/11/18 10:48 Dose: 10 mg Magnesium Hydroxide (Milk Of Magnesia -) 30 ml PO DAILY PRN PRN Reason: CONSTIPATION Morphine Sulfate (Morphine Sulfate) 1 mg IVPUSH Q4H PRN PRN Reason: PAIN LEVEL 6-10 Ondansetron HCl (Zofran Injection) 4 mg IVPUSH Q6H PRN PRN Reason: NAUSEA AND/OR VOMITING - Objective Vital Signs: Vital Signs Temperature 99.1 F 03/11/18 06:00 Pulse Rate 91 H 03/11/18 06:00 Respiratory Rate 18 18 06:00 Blood Pressure 124/46 03/11/18 06:00 O2 Sat by Pulse Oximetry (%) 100 03/10/18 21:00 Constitutional: Yes: No Distress, Calm Neck: Yes: Supple Cardiovascular: Yes: Regular Rate and Rhythm Respiratory: Yes: Regular, CTA Bilaterally Gastrointestinal: Yes: Normal Bowel Sounds, Soft Edema: No Labs: CBC, BMP 03/11/18 06:20 03/11/18 06:20 INR, PTT INR 1.10 (0.83-1.09) H 03/07/18 16:00 Problem List - Problems (1) Dementia Code(s): F03.90 - UNSPECIFIED DEMENTIA WITHOUT BEHAVIORAL DISTURBANCE Qualifiers: Dementia type: unspecified type Dementia behavioral disturbance: with behavioral disturbance Qualified Code(s): F03.91 - Unspecified dementia with behavioral disturbance (2) HTN (hypertension) Code(s): I10 - ESSENTIAL (PRIMARY) HYPERTENSION Qualifiers: Hypertension type: essential hypertension Qualified Code(s): I10 - Essential (primary) hypertension (3) Hypercholesterolemia Code(s): E78.00 - PURE HYPERCHOLESTEROLEMIA, UNSPECIFIED (4) Wrist fracture, left Code(s): S62.102A - FRACTURE OF UNSP CARPAL BONE, LEFT WRIST, INIT FOR CLOS FX Qualifiers: Encounter type: initial encounter Fracture type: closed Qualified Code(s) : S62.102A - Fracture of unspecified carpal bone, left wrist, initial encounter for closed fracture (5) Intertrochanteric fracture of left hip Code(s): S72.142A - DISPLACED INTERTROCHANTERIC FRACTURE OF LEFT FEMUR, INIT Qualifiers: Encounter type: initial encounter Fracture type: closed Fracture alignment: displaced Qualified Code(s): S72.142A - Displaced intertrochanteric fracture of left femur, initial encounter for closed fracture Assessment/Plan 03/08/2018 Echo: Normal LV size with mild cLVH, normal RV size and fxn, tr TR, tr-mild MR 1. Left wrist fracture and left hip fracture s/p fall POD#1 left hip intramedullary nail 2. HTN 3. Hypercholesterolemia 4. Organic brain syndrome/dementia PLAN: 1. Increase Lisinopril 20 qd and continue Lipitor 20 qhs 2. Resume ASA 81 qd 3. DVT prophylaxis, analgesia as needed 4. PT->SNF
[2018-03-11 14:39] LABS: PLATELET ESTIMATE ADEQUATE
--- NOTE | 2018-03-11 18:24 | PN ---
Physical Exam: SUBJECTIVE: Patient seen and examined this morning. Has not had a BM yet and requested morphine x1 overnight as per nursing staff. OBJECTIVE: Vital Signs Period Temp Pulse Resp BP Sys/Lara Pulse Ox Last 24 Hr 98.0 F-99.9 F 80-106 16-50 124-163/46-80 100-100 GENERAL: AOx1 to person only, Hard of hearing, in no acute distress EYES: PERRL, EOMI THROAT: Oropharynx clear without exudates, moist mucous membranes. LUNGS: Breath sounds equal, clear to auscultation bilaterally, no wheezes HEART: Regular rate and rhythm, S1, S2 without murmur. ABDOMEN: Soft, Obese, nontender, nondistended, normoactive bowel sounds UPPER EXTREMITIES: Left wrist casted, Radial pulses covered by hard cast, Capillary refill < 3 secs, mild tremors, C5-T1 gross sensation intact LOWER EXTREMITIES: Left hip pain present on palpation, No edema. L4-S1 gross sensation intact b/l, No hematoma identified Laboratory Results - last 24 hr 03/10/18 03/11/18 03/11/18 20:30 06:20 06:20 WBC 15.3 H 13.3 H RBC 3.00 L 2.86 L Hgb 9.1 L 8.5 L Hct 27.8 L 26.3 L MCV 92.8 91.8 MCH 30.3 29.8 MCHC 32.7 32.5 RDW 13.2 13.2 Plt Count 130 L 187 D MPV 8.4 D 8.7 Absolute Neuts (auto) 11.9 10.6 Total Counted 100 Neutrophils % 77.7 79.8 Neutrophils % (Manual) 81.0 Band Neutrophils % 1.0 Lymphocytes % 7.9 L D 7.4 L Lymphocytes % (Manual) 8.0 Monocytes % 13.8 H 11.2 H Monocytes % (Manual) 8 Eosinophils % 0.3 0.5 Eosinophils % (Manual) 2.0 Basophils % 0.3 1.1 D Nucleated RBC % 0 1 H Platelet Estimate Adequate Sodium 143 Potassium 3.9 Chloride 110 H Carbon Dioxide 26 Anion Gap 7 L BUN 18 Creatinine 0.5 L Creat Clearance w eGFR > 60 Random Glucose 123 H Calcium 7.1 L Active Medications Acetaminophen (Tylenol -) 650 mg PO Q4H PRN PRN Reason: FEVER Aspirin (Asa -) 81 mg PO DAILY [facility] Last Admin: 03/13/18 10:46 Dose: 81 mg Atorvastatin Calcium (Lipitor -) 20 mg PO HS [facility] Last Admin: 03/12/18 21:45 Dose: 20 mg Calcium Carbonate/Cholecalciferol (Os-Nicolas 500+D -) 1 tab PO BID [facility] Last Admin: 03/13/18 10:47 Dose: 1 tab Docusate Sodium (Colace -) 100 mg PO TID [facility] Last Admin: 03/13/18 14:40 Dose: 100 mg Donepezil HCl (Aricept -) 10 mg PO HS [facility] Last Admin: 03/12/18 21:45 Dose: 10 mg Enoxaparin Sodium (Lovenox -) 40 mg SQ DAILY [facility] Last Admin: 03/13/18 10:47 Dose: 40 mg Fentanyl (Sublimaze Injection -) 50 mcg IVPUSH [id number] PRN PRN Reason: PAIN-PACU ORDER X 4 DOSES ONLY Last Admin: 03/10/18 17:10 Dose: 50 mcg Ferrous Sulfate (Feosol -) 325 mg PO BIDWM [facility] Last Admin: 03/13/18 17:18 Dose: 325 mg Fluoxetine HCl (Prozac -) 10 mg PO DAILY [facility] Last Admin: 03/13/18 10:47 Dose: 10 mg Lisinopril (Prinivil) 20 mg PO DAILY [facility] Last Admin: 03/13/18 10:47 Dose: 20 mg Magnesium Hydroxide (Milk Of Magnesia -) 30 ml PO DAILY PRN PRN Reason: CONSTIPATION Metoprolol Tartrate (Lopressor -) 25 mg PO BID [facility] Last Admin: 03/13/18 10:47 Dose: 25 mg Morphine Sulfate (Morphine Sulfate) 1 mg IVPUSH Q4H PRN PRN Reason: PAIN LEVEL 6-10 Ondansetron HCl (Zofran Injection) 4 mg IVPUSH Q6H PRN PRN Reason: NAUSEA AND/OR VOMITING ASSESSMENT/PLAN: 87 year old female with past medical history of dementia was brought in by EMS after a fall. According to her friend, she fell in her room and was found on the floor. Patient complained of left wrist pain. 1. Fever - Notified by Nurse that patient spike a fever of 102.2 - Ordered Acetaminophen 1,000 mg IVPB Q6H PRN - CXR (03/10): No evidence of pneumonia, CHF, pleural effusion, or pneumothorax. Right hilar prominence, of unclear etiology possibly related to the pulmonary vessels, or adenopathy - UA: 1+ Protien, 1+ Ketones, 1+ Blood, 4 wbc - Blood and Urine cx pending - Temperature went down to 98.7 - Continue to monitor 2. Fracture, L Hip POD#1 - S/P Mechanical fall due to noncompliance with rolling walker - Left hip pain present on palpation, No edema. L4-S1 gross sensation intact b/l , No hematoma identified, Left thigh circumference 53cm - X-ray of the pelvis and left hip: Comminuted fracture of the left the femoral intratrochanteric bone with displaced fragments and avulsion of the lesser trochanter - Patient is intermediate risk for intermediate risk procedure - Continue Normal Saline @ 75 mls/hr IV - Fall precaution - Continue Acetaminophen 650 mg PO Q4H PRN - Continue Morphine 2 mg IVPUSH Q4H PRN - NPO after midnight - Orthopedics (Dr. Bob) consulted, appreciate Rec's, Pt requires IM nail of left hip, surgery on 03/10, pt to start PT, use iron for post surgical anemia, oob 3. Fracture, L wrist - S/P Mechanical fall due to noncompliance with rolling walker - X-ray of the left elbow: No gross fracture or dislocation identified - X-ray of the left wrist: Displaced fracture of the distal radius with posterior/ lateral displacement of the distal segment. - X-ray of the left wrist: Previously visualized distal radial fracture appears to be in satisfactory alignment with residual minimal displacement. Avulsion fracture of the ulnar styloid process is again seen. - S/P Left wrist manual reduction in the ED. - Continue Acetaminophen 650 mg PO Q4H PRN - Continue Morphine 2 mg IVPUSH Q4H PRN - Orthopedics (Dr. Bob) consulted, appreciate Rec's, Elevate LUE for swelling - Will need repeat imaging in several weeks, F/U Ortho outpatient 4. Anemia - Hgb 11.4 --> 9.6 - Repeat Hgb 9.3 - No obvious signs of bleeding - Left thigh circumference initially measured at 56cm, repeat measured at 53, not significantly larger than right - Continue to monitor size 5. HTN - Controlled, today 130-142/57-70 - Continue home dose Lisinopril 10 mg PO DAILY 6. HLD - Continue home dose Atorvastatin 20 mg PO HS 7. Dementia - Continue home dose Donepezil 10 mg PO DAILY 8. ?Depression - Continue home dose Fluoxetine 10 mg PO DAILY 9. FEN - Normal Saline @ 75 mls/hr IV - Lytes WNL, replete as needed - Sodium controlled diet 10. PPx - DVT: Heparin 5,000 unit SQ BID [facility] Dispo: admit to med-surg Visit type - Emergency Visit Emergency Visit: Yes ED Registration Date: 03/07/18 Care time: The patient presented to the Emergency Department on the above date and was hospitalized for further evaluation of their emergent condition. - New Patient This patient is new to me today: No - Critical Care Critical Care patient: No
[2018-03-11] MEDS: DONEPEZIL HCL 10 MG TABLET (FP) PO SCH (21:52)
[2018-03-11] MEDS: ATORVASTATIN CA 20 MG TABLET (FP) PO SCH (21:52)
[2018-03-12] MEDS: DOCUSATE SODIUM 100 MG CAPSULE (FP) PO SCH ×3 (06:28→21:45)
[2018-03-12 07:14] LABS: BASO % 0.5 % (0-2.0); EOS % 0.4 % (0-4.5); HEMATOCRIT 23.8 % (32.4-45.2); LYMPH % 10.1 % (8-40); MCH 30.1 pg (25.7-33.7); MCHC 33.7 g/dl (32.0-36.0); MEAN CELL VOLUME 89.4 fl (80-96); MEAN PLT VOLUME 7.7 fl (7.5-11.1); MONO % 13.9 % (3.8-10.2); NEUT % 75.1 % (42.8-82.8); PLATELET COUNT 218 K/MM3 (134-434); RBC 2.67 M/mm3 (3.60-5.2); RDW 12.8 % (11.6-15.6); WHITE BLOOD COUNT 12.5 K/mm3 (4.0-10.0)
[2018-03-12 07:33] LABS: ANION GAP 8 (8-16); BLOOD UREA NITROGEN 17 mg/dL (7-18); CALCIUM 7.7 mg/dL (8.5-10.1); CHLORIDE 110 mmol/L (98-107); CO2 26 mmol/L (21-32); CREATININE 0.5 mg/dL (0.55-1.02); GLUCOSE,RANDOM 129 mg/dL (74-106); MAGNESIUM 2.3 mg/dL (1.8-2.4); PHOSPHOROUS 1.8 mg/dL (2.5-4.9); POTASSIUM 3.7 mmol/L (3.5-5.1); SODIUM 144 mmol/L (136-145)
[2018-03-12] MEDS ORDERED: PT OWN MED DRAWER 7, Y5N ONE (08:24)
[2018-03-12] MEDS: FERROUS SO4 325 MG TABLET (FP) PO SCH ×2 (08:29→17:41)
[2018-03-12] MEDS: CALCIUM 500MG/VIT-D 200 UNITS COMBO TABLET (FP) PO SCH ×2 (09:04→21:45)
[2018-03-12] MEDS: FLUoxetine HCL 10 MG CAPSULE (FP) PO SCH (09:04)
[2018-03-12] MEDS: ENOXAPARIN NA (PORCINE) 40 MG/0.4 ML DISP.SYRIN SQ SCH (09:04)
[2018-03-12] MEDS: LISINOPRIL 10 MG TABLET (FP) PO SCH (09:04)
[2018-03-12] MEDS: ASPIRIN 81 MG CHEWABLE TABLETS PO SCH (09:04)
--- NOTE | 2018-03-12 10:14 | PN ---
Progress Note (short form) - Note Progress Note: Vital Signs Temperature 98.6 F 03/12/18 06:00 Pulse Rate 106 H 03/12/18 06:00 Respiratory Rate 20 03/12/18 06:00 Blood Pressure 164/80 03/12/18 06:00 O2 Sat by Pulse Oximetry (%) 96 03/11/18 21:00 CBCD WBC 12.5 K/mm3 (4.0-10.0) H 03/12/18 06:00 RBC 2.67 M/mm3 (3.60-5.2) L 03/12/18 06:00 Hgb 8.0 GM/dL (10.7-15.3) L 03/12/18 06:00 Hct 23.8 % (32.4-45.2) L 03/12/18 06:00 MCV 89.4 fl (80-96) 03/12/18 06:00 MCHC 33.7 g/dl (32.0-36.0) 03/12/18 06:00 RDW 12.8 % (11.6-15.6) 03/12/18 06:00 Plt Count 218 K/MM3 (134-434) 03/12/18 06:00 MPV 7.7 fl (7.5-11.1) D 03/12/18 06:00 CMP Sodium 144 mmol/L (136-145) 03/12/18 06:00 Potassium 3.7 mmol/L (3.5-5.1) 03/12/18 06:00 Chloride 110 mmol/L (98-107) H 03/12/18 06:00 Carbon Dioxide 26 mmol/L (21-32) 03/12/18 06:00 Anion Gap 8 (8-16) 03/12/18 06:00 BUN 17 mg/dL (7-18) 03/12/18 06:00 Creatinine 0.5 mg/dL (0.55-1.02) L 03/12/18 06:00 Creat Clearance w eGFR > 60 (>60) 03/12/18 06:00 Random Glucose 129 mg/dL (74-106) H 03/12/18 06:00 Calcium 7.7 mg/dL (8.5-10.1) L 03/12/18 06:00 Total Bilirubin 0.4 mg/dL (0.2-1.0) 03/09/18 06:00 AST 15 U/L (15-37) 03/09/18 06:00 ALT 14 U/L (12-78) 03/09/18 06:00 Alkaline Phosphatase 68 U/L (45-117) D 03/09/18 06:00 Total Protein 5.3 g/dl (6.4-8.2) L 03/09/18 06:00 Albumin 2.7 g/dl (3.4-5.0) L 03/09/18 06:00 CARDIAC ENZYMES Creatine Kinase 166 IU/L (26-192) 03/08/18 06:20 Troponin I < 0.02 ng/ml (0.00-0.05) 03/07/18 16:00 Current Medications Generic Name Dose Route Start Last Admin Trade Name Freq PRN Reason Stop Dose Admin Acetaminophen 650 mg 03/10/18 16:47 Tylenol - PO Q4H PRN FEVER Acetaminophen 1,000 mg 03/10/18 16:47 Ofirmev Injection - IVPB Q6H PRN FEVER Aspirin 81 mg 03/12/18 10:00 03/12/18 09:04 Asa - PO 81 mg DAILY [facility] Administration Atorvastatin Calcium 20 mg 03/10/18 22:00 03/11/18 21:52 Lipitor - PO 20 mg HS [facility] Administration Calcium Carbonate/Cholecalciferol 1 tab 03/10/18 22:00 03/12/18 09:04 Os-Nicolas 500+D - PO 1 tab BID [facility] Administration Docusate Sodium 100 mg 03/10/18 22:00 03/12/18 06:28 Colace - PO 100 mg TID [facility] Administration Donepezil HCl 10 mg 03/11/18 22:00 03/11/18 21:52 Aricept - PO 10 mg HS [facility] Administration Enoxaparin Sodium 40 mg 03/11/18 10:00 03/12/18 09:04 Lovenox - SQ 40 mg DAILY [facility] Administration Fentanyl 50 mcg 03/10/18 15:37 03/10/18 17:10 Sublimaze Injection - IVPUSH 50 mcg [id number] PRN Administration PAIN-PACU ORDER X 4 DOSES ONLY Ferrous Sulfate 325 mg 03/10/18 17:30 03/12/18 08:29 Feosol - PO 325 mg BIDWM [facility] Administration Fluoxetine HCl 10 mg 03/11/18 10:00 03/12/18 09:04 Prozac - PO 10 mg DAILY [facility] Administration Lisinopril 20 mg 03/11/18 11:47 03/12/18 09:04 Prinivil PO 20 mg DAILY [facility] Administration Magnesium Hydroxide 30 ml 03/10/18 16:47 Milk Of Magnesia - PO DAILY PRN [facility] Morphine Sulfate 1 mg 03/11/18 10:47 Morphine Sulfate IVPUSH Q4H PRN PAIN LEVEL 6-10 Ondansetron HCl 4 mg 03/10/18 15:37 Zofran Injection IVPUSH Q6H PRN NAUSEA AND/OR VOMITING Home Medications Medication Instructions Recorded Acetaminophen [Tylenol] 650 mg PO DAILY PRN 03/07/18 Aspirin 81 mg PO DAILY 03/07/18 Bimatoprost [Lumigan] 1 drop IO DAILY 03/07/18 Calcium Carbonate/Vitamin D3 1 each PO DAILY 03/07/18 [Oyster Shell 500-Vit D3 200 Tb] Cholecalciferol (Vitamin D3) 1,000 unit PO DAILY 03/07/18 [Vitamin D3] Donepezil HCl [Aricept -] 10 mg PO DAILY 03/07/18 Fluoxetine HCl [Sarafem] 10 mg PO DAILY 03/07/18 Fluticasone Prop 0.05% Nasal 1 - 2 spray NS DAILY 03/07/18 [Flonase -] Lisinopril [Prinivil] 20 mg PO DAILY 03/07/18 Memantine HCl [Namenda -] 10 mg PO DAILY 03/07/18 Simvastatin [Zocor -] 20 mg PO HS 03/07/18 clonazePAM [Klonopin -] 0.5 mg PO DAILY 03/07/18 Polyvinyl Alcohol [Artificial 1 drop OS TID 03/08/18 Tears] Timolol 0.25% [Timoptic 0.25%] 1 drop OD BID 03/08/18 General NAD [facility] [place], A&O x1 (self only) CV S1 s2 + Lungs CTA B/L no wheezing/rales/rhonchi Extremities LUE in hard cast, able to move the digits without difficulty, good capillary refill unable to access radial pulse due to cast LLE +point tenderness of the hip. minimal swelling of the R thigh no hematoma identified. Leg is 53cm Patient is a 87yo F wtih PMH dementia and HTN presented to the ER after mechanical fall and sustained L wrist and L hip fracture # L hip fracture- s/p mechanical fall. POD#2 . #.L wrist fracture- s/p manual reduction in the ER with cast . will need repeat imaging in several weeks. continue pain control # mechanical fall- due to non-compliance CT head showing chronic changes. PT eval # Microcytic anemia- some component of dilution. no obvious signs of bleeding. thigh is not significantly larger than the R. size stable. CBC is stable. # Agitation- noted in the ER. s/p haldol and ativan. now alert. no repeat episodes # dementia- improving # HTN- controlled. cont home medication DVT ppx- hep sq Visit type - Emergency Visit Emergency Visit: Yes ED Registration Date: 03/07/18 Care time: The patient presented to the Emergency Department on the above date and was hospitalized for further evaluation of their emergent condition. - New Patient This patient is new to me today: No - Critical Care Critical Care patient: No - Discharge Referral Referred to [facility] Med P.C.: No
--- NOTE | 2018-03-12 11:41 | PN ---
Progress Note, Physician Chief Complaint: Events noted Not in distress History of Present Illness: Patient was seen and examined. Chart was reviewed - Current Medication List Current Medications: Active Medications Acetaminophen (Tylenol -) 650 mg PO Q4H PRN PRN Reason: FEVER Acetaminophen (Ofirmev Injection -) 1,000 mg IVPB Q6H PRN PRN Reason: FEVER Aspirin (Asa -) 81 mg PO DAILY [facility] Last Admin: 03/12/18 09:04 Dose: 81 mg Atorvastatin Calcium (Lipitor -) 20 mg PO HS [facility] Last Admin: 03/11/18 21:52 Dose: 20 mg Calcium Carbonate/Cholecalciferol (Os-Nicolas 500+D -) 1 tab PO BID [facility] Last Admin: 03/12/18 09:04 Dose: 1 tab Docusate Sodium (Colace -) 100 mg PO TID [facility] Last Admin: 03/12/18 06:28 Dose: 100 mg Donepezil HCl (Aricept -) 10 mg PO [facility] Last Admin: 03/11/18 21:52 Dose: 10 mg Enoxaparin Sodium (Lovenox -) 40 mg SQ DAILY [facility] Last Admin: 03/12/18 09:04 Dose: 40 mg Fentanyl (Sublimaze Injection -) 50 mcg IVPUSH [id number] PRN PRN Reason: PAIN-PACU ORDER X 4 DOSES ONLY Last Admin: 03/10/18 17:10 Dose: 50 mcg Ferrous Sulfate (Feosol -) 325 mg PO BIDWM [facility] Last Admin: 03/12/18 08:29 Dose: 325 mg Fluoxetine HCl (Prozac -) 10 mg PO DAILY [facility] Last Admin: 03/12/18 09:04 Dose: 10 mg Lisinopril (Prinivil) 20 mg PO DAILY [facility] Last Admin: 03/12/18 09:04 Dose: 20 mg Magnesium Hydroxide (Milk Of Magnesia -) 30 ml PO DAILY PRN PRN Reason: CONSTIPATION Morphine Sulfate (Morphine Sulfate) 1 mg IVPUSH Q4H PRN PRN Reason: PAIN LEVEL 6-10 Ondansetron HCl (Zofran Injection) 4 mg IVPUSH Q6H PRN PRN Reason: NAUSEA AND/OR VOMITING - Objective Vital Signs: Vital Signs Temperature 98.6 F 03/12/18 06:00 Pulse Rate 106 H 03/12/18 06:00 Respiratory Rate 20 03/12/18 06:00 Blood Pressure 164/80 03/12/18 06:00 O2 Sat by Pulse Oximetry (%) 96 03/11/18 21:00 Neck: Yes: Supple Cardiovascular: Yes: Regular Rate and Rhythm, S1, S2 Respiratory: Yes: Diminished Gastrointestinal: Yes: Normal Bowel Sounds, Soft. No: Tenderness Edema: No Labs: CBC, BMP 03/12/18 06:00 03/12/18 06:00 Problem List - Problems (1) Dementia Code(s): F03.90 - UNSPECIFIED DEMENTIA WITHOUT BEHAVIORAL DISTURBANCE Qualifiers: Dementia type: unspecified type Dementia behavioral disturbance: with behavioral disturbance Qualified Code(s): F03.91 - Unspecified dementia with behavioral disturbance (2) Wrist fracture, left Code(s): S62.102A - FRACTURE OF UNSP CARPAL BONE, LEFT WRIST, INIT FOR CLOS FX Qualifiers: Encounter type: initial encounter Fracture type: closed Qualified Code(s) : S62.102A - Fracture of unspecified carpal bone, left wrist, initial encounter for closed fracture (3) Intertrochanteric fracture of left hip Code(s): S72.142A - DISPLACED INTERTROCHANTERIC FRACTURE OF LEFT FEMUR, INIT Qualifiers: Encounter type: initial encounter Fracture type: closed Fracture alignment: displaced Qualified Code(s): S72.142A - Displaced intertrochanteric fracture of left femur, initial encounter for closed fracture (4) HTN (hypertension) Code(s): I10 - ESSENTIAL (PRIMARY) HYPERTENSION Qualifiers: Hypertension type: essential hypertension Qualified Code(s): I10 - Essential (primary) hypertension (5) Hypercholesterolemia Code(s): E78.00 - PURE HYPERCHOLESTEROLEMIA, UNSPECIFIED Assessment/Plan 1. Left wrist fracture and left hip fracture s/p left hip intramedullary nail 2. HTN 3. Hypercholesterolemia 4. Organic brain syndrome/dementia PLAN: 1. Continue Lisinopril (uptitrate) and continue Lipitor 20 qhs. Add Metoprolol as tolerated 2. Resume ASA 81 qd 3. DVT prophylaxis, analgesia as needed 4. PT and eventual SNF Further recommendation to follow Wilfredo Limon MD
[2018-03-12] MEDS: METOPROLOL TARTRATE 25 MG TABLET (FP) PO SCH ×2 (14:53→21:45)
[2018-03-12] MEDS: ATORVASTATIN CA 20 MG TABLET (FP) PO SCH (21:45)
[2018-03-12] MEDS: DONEPEZIL HCL 10 MG TABLET (FP) PO SCH (21:45)
--- NOTE | 2018-03-13 04:23 | PN ---
<Sharad Reyez - Last Filed: 03/13/18 16:49> Physical Exam: SUBJECTIVE: Patient seen and examined at bed side , pod# 3 , no acute events , wound clean , no fever , chills,N/V/D/C, dementia at base line AAOx1 . OBJECTIVE: Vital Signs Period Temp Pulse Resp BP Sys/Lara Pulse Ox Last 24 Hr 98.6 F-100.2 F 85-118 20-21 148-164/66-98 95-95 GENERAL: AAOx1 in NAD HEAD: NC/AT EYES: EOMI, Conjunctiva clear, sclera anicteric ENT: moist mucous membrane NECK: Supple, no JVD LUNGS: CTA B/L, no crackles no wheezing no accessory muscle use. HEART: RRR, NSR, normal s1, s2, murmur no M/R/G ABDOMEN: Soft, ND, NT, +BS 4 Q, no CVA Tenderness EXTREMITIES: ,left wrist casted , sensation intact , pulse +2 Radial Pulse, LOWER EXTREMITIES: Left hip pain present on palpation, No edema.sensation intact +2 DP NEUROLOGICAL: No focal deficit. Normal speech. gait not observed. PSYCHIATRIC: Cooperative. Good eye contact. Appropriate mood and affect. SKIN: Warm, dry,normal trugor Laboratory Results - last 24 hr 03/12/18 03/12/18 06:00 06:00 WBC 12.5 H RBC 2.67 L Hgb 8.0 L Hct 23.8 L MCV 89.4 MCH 30.1 MCHC 33.7 RDW 12.8 Plt Count 218 MPV 7.7 D Absolute Neuts (auto) 9.4 Neutrophils % 75.1 Lymphocytes % 10.1 D Monocytes % 13.9 H Eosinophils % 0.4 Basophils % 0.5 Nucleated RBC % 0 Sodium 144 Potassium 3.7 Chloride 110 H Carbon Dioxide 26 Anion Gap 8 BUN 17 Creatinine 0.5 L Creat Clearance w eGFR > 60 Random Glucose 129 H Calcium 7.7 L Phosphorus 1.8 L Magnesium 2.3 Active Medications Generic Name Dose Route Start Last Admin Trade Name Freq PRN Reason Stop Dose Admin Acetaminophen 650 mg 03/10/18 16:47 Tylenol - PO Q4H PRN FEVER Aspirin 81 mg 03/12/18 10:00 03/12/18 09:04 Asa - PO 81 mg DAILY [facility] Administration Atorvastatin Calcium 20 mg 03/10/18 22:00 03/12/18 21:45 Lipitor - PO 20 mg HS [facility] Administration Calcium Carbonate/Cholecalciferol 1 tab 03/10/18 22:00 03/12/18 21:45 Os-Nicolas 500+D - PO 1 tab BID [facility] Administration Docusate Sodium 100 mg 03/10/18 22:00 03/12/18 21:45 Colace - PO 100 mg TID [facility] Administration Donepezil HCl 10 mg 03/11/18 22:00 03/12/18 21:45 Aricept - PO 10 mg HS [facility] Administration Enoxaparin Sodium 40 mg 03/11/18 10:00 03/12/18 09:04 Lovenox - SQ 40 mg DAILY [facility] Administration Fentanyl 50 mcg 03/10/18 15:37 03/10/18 17:10 Sublimaze Injection - IVPUSH 50 mcg [id number] PRN Administration PAIN-PACU ORDER X 4 DOSES ONLY Ferrous Sulfate 325 mg 03/10/18 17:30 03/12/18 17:41 Feosol - PO 325 mg BIDWM [facility] Administration Fluoxetine HCl 10 mg 03/11/18 10:00 03/12/18 09:04 Prozac - PO 10 mg DAILY [facility] Administration Lisinopril 20 mg 03/11/18 11:47 03/12/18 09:04 Prinivil PO 20 mg DAILY [facility] Administration Magnesium Hydroxide 30 ml 03/10/18 16:47 Milk Of Magnesia - PO DAILY PRN CONSTIPATION Metoprolol Tartrate 25 mg 03/12/18 11:45 03/12/18 21:45 Lopressor - PO 25 mg BID [facility] Administration Morphine Sulfate 1 mg 03/11/18 10:47 Morphine Sulfate IVPUSH Q4H PRN PAIN LEVEL 6-10 Ondansetron HCl 4 mg 03/10/18 15:37 Zofran Injection IVPUSH Q6H PRN NAUSEA AND/OR VOMITING CBC, BMP 03/12/18 06:00 03/12/18 06:00 ASSESSMENT/PLAN: 87 year old female with past medical history of dementia was brought in by EMS after a fall. According to her friend, she fell in her room and was found on the floor. Patient complained of left wrist pain. # Fracture, L Hip * POD# 3 * Fall precaution/ physical therapy / will benifit from [facility] * Continue Acetaminophen 650 mg PO Q4H PRN * Continue Morphine 1 mg IVPUSH Q4H PRN * dvt proph with lovenox 40 sq daily # Fracture, L wrist( Displaced fracture of the distal radius), stable * S/P Mechanical fall due * S/P Left wrist manual reduction/cast * pain control * repeat xray in several weeks and F/U out pt with ortho # Anemia due to operation * Hgb 11.4 ... 9.6...8 * monitor H/H * No signs of active bleeding # HTN, controlled * Continue Lisinopril 20 mg PO DAILY * Add Metoprolol as tolerated per cardiology * Resume ASA 81 qd # HLD * Continue Atorvastatin 20 mg PO HS # Dementia/depression * Continue home dose Donepezil , Fluoxetine # FEN * F: No standing fluids , encourage oral intake * E: Lytes monitor * N: Sodium controlled diet # PPx * DVT: Lovenox 40 mg SQ daily #Dispo: * med-surg, * possible DC tomorrow to [facility] <Safia Castillo - Last Filed: 03/13/18 17:13> Physical Exam: Patient is comfortable with no acute distress, no nausea or vomiting. willdc in am to rehab. Vital Signs Temperature 98.7 F 03/13/18 10:41 Pulse Rate 90 03/13/18 10:41 Respiratory Rate 18 03/13/18 10:41 Blood Pressure 147/65 03/13/18 10:41 O2 Sat by Pulse Oximetry (%) 94 L 03/13/18 10:40 CBCD WBC 12.5 K/mm3 (4.0-10.0) H 03/12/18 06:00 RBC 2.67 M/mm3 (3.60-5.2) L 03/12/18 06:00 Hgb 8.0 GM/dL (10.7-15.3) L 03/12/18 06:00 Hct 23.8 % (32.4-45.2) L 03/12/18 06:00 MCV 89.4 fl (80-96) 03/12/18 06:00 MCHC 33.7 g/dl (32.0-36.0) 03/12/18 06:00 RDW 12.8 % (11.6-15.6) 03/12/18 06:00 Plt Count 218 K/MM3 (134-434) 03/12/18 06:00 MPV 7.7 fl (7.5-11.1) D 03/12/18 06:00 CMP Sodium 144 mmol/L (136-145) 03/12/18 06:00 Potassium 3.7 mmol/L (3.5-5.1) 03/12/18 06:00 Chloride 110 mmol/L (98-107) H 03/12/18 06:00 Carbon Dioxide 26 mmol/L (21-32) 03/12/18 06:00 Anion Gap 8 (8-16) 03/12/18 06:00 BUN 17 mg/dL (7-18) 03/12/18 06:00 Creatinine 0.5 mg/dL (0.55-1.02) L 03/12/18 06:00 Creat Clearance w eGFR > 60 (>60) 03/12/18 06:00 Random Glucose 129 mg/dL (74-106) H 03/12/18 06:00 Calcium 7.7 mg/dL (8.5-10.1) L 03/12/18 06:00 Total Bilirubin 0.4 mg/dL (0.2-1.0) 03/09/18 06:00 AST 15 U/L (15-37) 03/09/18 06:00 ALT 14 U/L (12-78) 03/09/18 06:00 Alkaline Phosphatase 68 U/L (45-117) D 03/09/18 06:00 Total Protein 5.3 g/dl (6.4-8.2) L 03/09/18 06:00 Albumin 2.7 g/dl (3.4-5.0) L 03/09/18 06:00 CARDIAC ENZYMES Creatine Kinase 166 IU/L (26-192) 03/08/18 06:20 Troponin I < 0.02 ng/ml (0.00-0.05) 03/07/18 16:00 Current Medications Generic Name Dose Route Start Last Admin Trade Name Freq PRN Reason Stop Dose Admin Acetaminophen 650 mg 03/10/18 16:47 Tylenol - PO Q4H PRN FEVER Aspirin 81 mg 03/12/18 10:00 03/13/18 10:46 Asa - PO 81 mg DAILY [facility] Administration Atorvastatin Calcium 20 mg 03/10/18 22:00 03/12/18 21:45 Lipitor - PO 20 mg HS [facility] Administration Calcium Carbonate/Cholecalciferol 1 tab 03/10/18 22:00 03/13/18 10:47 Os-Nicolas 500+D - PO 1 tab BID [facility] Administration Docusate Sodium 100 mg 03/10/18 22:00 03/13/18 14:40 Colace - PO 100 mg TID [facility] Administration Donepezil HCl 10 mg 03/11/18 22:00 03/12/18 21:45 Aricept - PO 10 mg HS [facility] Administration Enoxaparin Sodium 40 mg 03/11/18 10:00 03/13/18 10:47 Lovenox - SQ 40 mg DAILY [facility] Administration Fentanyl 50 mcg 03/10/18 15:37 03/10/18 17:10 Sublimaze Injection - IVPUSH 50 mcg [id number] PRN Administration PAIN-PACU ORDER X 4 DOSES ONLY Ferrous Sulfate 325 mg 03/10/18 17:30 03/13/18 10:47 Feosol - PO 325 mg BIDWM [facility] Administration Fluoxetine HCl 10 mg 03/11/18 10:00 03/13/18 10:47 Prozac - PO 10 mg DAILY [facility] Administration Lisinopril 20 mg 03/11/18 11:47 03/13/18 10:47 Prinivil PO 20 mg DAILY [facility] Administration Magnesium Hydroxide 30 ml 03/10/18 16:47 Milk Of Magnesia - PO DAILY PRN CONSTIPATION Metoprolol Tartrate 25 mg 03/12/18 11:45 03/13/18 10:47 Lopressor - PO 25 mg BID [facility] Administration Morphine Sulfate 1 mg 03/11/18 10:47 Morphine Sulfate IVPUSH Q4H PRN PAIN LEVEL 6-10 Ondansetron HCl 4 mg 03/10/18 15:37 Zofran Injection IVPUSH Q6H PRN NAUSEA AND/OR VOMITING Home Medications Medication Instructions Recorded Acetaminophen [Tylenol] 650 mg PO DAILY PRN 03/07/18 Aspirin 81 mg PO DAILY 03/07/18 Bimatoprost [Lumigan] 1 drop IO DAILY 03/07/18 Calcium Carbonate/Vitamin D3 1 each PO DAILY 03/07/18 [Oyster Shell 500-Vit D3 200 Tb] Cholecalciferol (Vitamin D3) 1,000 unit PO DAILY 03/07/18 [Vitamin D3] Donepezil HCl [Aricept -] 10 mg PO DAILY 03/07/18 Fluoxetine HCl [Sarafem] 10 mg PO DAILY 03/07/18 Fluticasone Prop 0.05% Nasal 1 - 2 spray NS DAILY 03/07/18 [Flonase -] Lisinopril [Prinivil] 20 mg PO DAILY 03/07/18 Memantine HCl [Namenda -] 10 mg PO DAILY 03/07/18 Simvastatin [Zocor -] 20 mg PO HS 03/07/18 clonazePAM [Klonopin -] 0.5 mg PO DAILY 03/07/18 Polyvinyl Alcohol [Artificial 1 drop OS TID 03/08/18 Tears] Timolol 0.25% [Timoptic 0.25%] 1 drop OD BID 03/08/18 Visit type - Emergency Visit Emergency Visit: Yes ED Registration Date: 03/07/18 Care time: The patient presented to the Emergency Department on the above date and was hospitalized for further evaluation of their emergent condition. - New Patient This patient is new to me today: No - Critical Care Critical Care patient: No - Discharge Referral Referred to [facility] No
[2018-03-13] MEDS: DOCUSATE SODIUM 100 MG CAPSULE (FP) PO SCH ×3 (05:52→21:29)
[2018-03-13] MEDS ORDERED: PT OWN MED DRAWER 7, Y5N ONE (10:44)
[2018-03-13] MEDS: ASPIRIN 81 MG CHEWABLE TABLETS PO SCH (10:46)
[2018-03-13] MEDS: CALCIUM 500MG/VIT-D 200 UNITS COMBO TABLET (FP) PO SCH ×2 (10:47→21:29)
[2018-03-13] MEDS: ENOXAPARIN NA (PORCINE) 40 MG/0.4 ML DISP.SYRIN SQ SCH (10:47)
[2018-03-13] MEDS: LISINOPRIL 10 MG TABLET (FP) PO SCH (10:47)
[2018-03-13] MEDS: METOPROLOL TARTRATE 25 MG TABLET (FP) PO SCH ×2 (10:47→21:29)
[2018-03-13] MEDS: FLUoxetine HCL 10 MG CAPSULE (FP) PO SCH (10:47)
[2018-03-13] MEDS: FERROUS SO4 325 MG TABLET (FP) PO SCH ×2 (10:47→17:18)
--- NOTE | 2018-03-13 11:41 | PN ---
Progress Note (short form) - Note Progress Note: without complaints sitting up in bed cast intact lue dressing clean nvid h/h 03/24.8 pod#3 -oob/pt/wbat/dvt prophylaxis -dispo planning -post op anemia per medical team
[2018-03-13] MEDS: NAPH,MB-DB/K PH,MBDB POWDER PACKET PO SCH (21:29)
[2018-03-13] MEDS: DONEPEZIL HCL 10 MG TABLET (FP) PO SCH (21:29)
[2018-03-13] MEDS: ATORVASTATIN CA 20 MG TABLET (FP) PO SCH (21:29)
[2018-03-13] MEDS ORDERED: NAPH,MB-DB/K PH,MBDB POWDER PACKET PO SCH (22:00)
[2018-03-14] MEDS: DOCUSATE SODIUM 100 MG CAPSULE (FP) PO SCH ×2 (05:49→14:22)
[2018-03-14 08:49] LABS: BASO % 0.5 % (0-2.0); EOS % 2.2 % (0-4.5); HEMATOCRIT 25.3 % (32.4-45.2); HEMOGLOBIN 8.6 GM/dL (10.7-15.3); LYMPH % 11.6 % (8-40); MCH 30.3 pg (25.7-33.7); MCHC 33.9 g/dl (32.0-36.0); MEAN CELL VOLUME 89.4 fl (80-96); MEAN PLT VOLUME 7.5 fl (7.5-11.1); MONO % 10.9 % (3.8-10.2); NEUT % 74.8 % (42.8-82.8); PLATELET COUNT 349 K/MM3 (134-434); RBC 2.82 M/mm3 (3.60-5.2); RDW 12.8 % (11.6-15.6); WHITE BLOOD COUNT 11.7 K/mm3 (4.0-10.0)
[2018-03-14 08:59] LABS: ANION GAP 7 (8-16); BLOOD UREA NITROGEN 20 mg/dL (7-18); CALCIUM 7.7 mg/dL (8.5-10.1); CHLORIDE 107 mmol/L (98-107); CO2 28 mmol/L (21-32); GLUCOSE,RANDOM 107 mg/dL (74-106); MAGNESIUM 2.2 mg/dL (1.8-2.4); POTASSIUM 3.8 mmol/L (3.5-5.1); SODIUM 142 mmol/L (136-145)
[2018-03-14 09:02] LABS: CREATININE 0.5 mg/dL (0.55-1.02); PHOSPHOROUS 3.2 mg/dL (2.5-4.9)
--- NOTE | 2018-03-14 09:07 | PN ---
Teaching Attending Note Name of Resident: Cindy Roman ATTENDING PHYSICIAN STATEMENT I saw and evaluated the patient. I reviewed the resident's note and discussed the case with the resident. I agree with the resident's findings and plan as documented. SUBJECTIVE: OBJECTIVE: Vital Signs Temperature 98.9 F 03/14/18 05:40 Pulse Rate 79 03/14/18 05:40 Respiratory Rate 19 03/14/18 05:40 Blood Pressure 124/86 03/14/18 05:40 O2 Sat by Pulse Oximetry (%) 94 L 03/13/18 22:00 CBCD WBC 11.7 K/mm3 (4.0-10.0) H 03/14/18 07:30 RBC 2.82 M/mm3 (3.60-5.2) L 03/14/18 07:30 Hgb 8.6 GM/dL (10.7-15.3) L 03/14/18 07:30 Hct 25.3 % (32.4-45.2) L 03/14/18 07:30 MCV 89.4 fl (80-96) 03/14/18 07:30 MCHC 33.9 g/dl (32.0-36.0) 03/14/18 07:30 RDW 12.8 % (11.6-15.6) 03/14/18 07:30 Plt Count 349 K/MM3 (134-434) D 03/14/18 07:30 MPV 7.5 fl (7.5-11.1) 03/14/18 07:30 CMP Sodium 144 mmol/L (136-145) 03/12/18 06:00 Potassium 3.7 mmol/L (3.5-5.1) 03/12/18 06:00 Chloride 110 mmol/L (98-107) H 03/12/18 06:00 Carbon Dioxide 26 mmol/L (21-32) 03/12/18 06:00 Anion Gap 8 (8-16) 03/12/18 06:00 BUN 17 mg/dL (7-18) 03/12/18 06:00 Creatinine 0.5 mg/dL (0.55-1.02) L 03/12/18 06:00 Creat Clearance w eGFR > 60 (>60) 03/12/18 06:00 Random Glucose 129 mg/dL (74-106) H 03/12/18 06:00 Calcium 7.7 mg/dL (8.5-10.1) L 03/12/18 06:00 Total Bilirubin 0.4 mg/dL (0.2-1.0) 03/09/18 06:00 AST 15 U/L (15-37) 03/09/18 06:00 ALT 14 U/L (12-78) 03/09/18 06:00 Alkaline Phosphatase 68 U/L (45-117) D 03/09/18 06:00 Total Protein 5.3 g/dl (6.4-8.2) L 03/09/18 06:00 Albumin 2.7 g/dl (3.4-5.0) L 03/09/18 06:00 CARDIAC ENZYMES Creatine Kinase 166 IU/L (26-192) 03/08/18 06:20 Troponin I < 0.02 ng/ml (0.00-0.05) 03/07/18 16:00 Current Medications Generic Name Dose Route Start Last Admin Trade Name rBianna PRN Reason Stop Dose Admin Acetaminophen 650 mg 03/10/18 16:47 Tylenol - PO Q4H PRN FEVER Aspirin 81 mg 03/12/18 10:00 03/13/18 10:46 Asa - PO 81 mg DAILY [facility] Administration Atorvastatin Calcium 20 mg 03/10/18 22:00 03/13/18 21:29 Lipitor - PO 20 mg HS [facility] Administration Calcium Carbonate/Cholecalciferol 1 tab 03/10/18 22:00 03/13/18 21:29 Os-Nicolas 500+D - PO 1 tab BID [facility] Administration Docusate Sodium 100 mg 03/10/18 22:00 03/14/18 05:49 Colace - PO 100 mg TID [facility] Administration Donepezil HCl 10 mg 03/11/18 22:00 03/13/18 21:29 Aricept - PO 10 mg HS [facility] Administration Enoxaparin Sodium 40 mg 03/11/18 10:00 03/13/18 10:47 Lovenox - SQ 40 mg DAILY [facility] Administration Fentanyl 50 mcg 03/10/18 15:37 03/10/18 17:10 Sublimaze Injection - IVPUSH 50 mcg [id number] PRN Administration PAIN-PACU ORDER X 4 DOSES ONLY Ferrous Sulfate 325 mg 03/10/18 17:30 03/13/18 17:18 Feosol - PO 325 mg BIDWM [facility] Administration Fluoxetine HCl 10 mg 03/11/18 10:00 03/13/18 10:47 Prozac - PO 10 mg DAILY [facility] Administration Lisinopril 20 mg 03/11/18 11:47 03/13/18 10:47 Prinivil PO 20 mg DAILY [facility] Administration Magnesium Hydroxide 30 ml 03/10/18 16:47 Milk Of Magnesia - PO DAILY PRN CONSTIPATION Metoprolol Tartrate 25 mg 03/12/18 11:45 03/13/18 21:29 Lopressor - PO 25 mg BID [facility] Administration Morphine Sulfate 1 mg 03/11/18 10:47 Morphine Sulfate IVPUSH Q4H PRN PAIN LEVEL 6-10 Ondansetron HCl 4 mg 03/10/18 15:37 Zofran Injection IVPUSH Q6H PRN NAUSEA AND/OR VOMITING Potassium Phos/Sodium Phos 1 packet 03/13/18 22:00 03/13/18 21:29 Phos-Nak Packet - PO 03/14/18 10:01 1 packet BID [facility] Administration Home Medications Medication Instructions Recorded Acetaminophen [Tylenol] 650 mg PO DAILY PRN 03/07/18 Aspirin 81 mg PO DAILY 03/07/18 Bimatoprost [Lumigan] 1 drop IO DAILY 03/07/18 Calcium Carbonate/Vitamin D3 1 each PO DAILY 03/07/18 [Oyster Shell 500-Vit D3 200 Tb] Cholecalciferol (Vitamin D3) 1,000 unit PO DAILY 03/07/18 [Vitamin D3] Donepezil HCl [Aricept -] 10 mg PO DAILY 03/07/18 Fluoxetine HCl [Sarafem] 10 mg PO DAILY 03/07/18 Fluticasone Prop 0.05% Nasal 1 - 2 spray NS DAILY 03/07/18 [Flonase -] Lisinopril [Prinivil] 20 mg PO DAILY 03/07/18 Memantine HCl [Namenda -] 10 mg PO DAILY 03/07/18 Simvastatin [Zocor -] 20 mg PO HS 03/07/18 clonazePAM [Klonopin -] 0.5 mg PO DAILY 03/07/18 Polyvinyl Alcohol [Artificial 1 drop OS TID 03/08/18 Tears] Timolol 0.25% [Timoptic 0.25%] 1 drop OD BID 03/08/18 General NAD NULATO, A&O x1. CV S1 s2 + Lungs CTA B/L no wheezing/rales/rhonchi Extremities LUE in hard cast, able to move the digits without difficulty, good capillary refill unable to access radial pulse due to cast LLE +point tenderness of the hip. minimal swelling of the R thigh no hematoma identified. Leg is 53cm ASSESSMENT AND PLAN: Patient is a 87yo F wtih PMH dementia and HTN presented to the ER after mechanical fall and sustained L wrist and L hip fracture # L hip fracture- s/p mechanical fall. POD#4. #L wrist fracture- s/p manual reduction in the ER with cast . will need repeat imaging in several weeks. continue pain control # mechanical fall- due to non-compliance CT head showing chronic changes. PT eval. # Microcytic anemia- some component of dilution. # Agitation- noted in the ER. s/p haldol and ativan. now alert. no repeat episodes # dementia- improving # HTN- controlled. cont home medication DVT ppx- hep sq
[2018-03-14] MEDS: FERROUS SO4 325 MG TABLET (FP) PO SCH ×2 (09:52→17:35)
[2018-03-14] MEDS: LISINOPRIL 10 MG TABLET (FP) PO SCH (09:52)
[2018-03-14] MEDS: CALCIUM 500MG/VIT-D 200 UNITS COMBO TABLET (FP) PO SCH (09:53)
[2018-03-14] MEDS: FLUoxetine HCL 10 MG CAPSULE (FP) PO SCH (09:53)
[2018-03-14] MEDS: ASPIRIN 81 MG CHEWABLE TABLETS PO SCH (09:53)
[2018-03-14] MEDS: ENOXAPARIN NA (PORCINE) 40 MG/0.4 ML DISP.SYRIN SQ SCH (09:53)
[2018-03-14] MEDS: NAPH,MB-DB/K PH,MBDB POWDER PACKET PO SCH (09:53)
[2018-03-14] MEDS: METOPROLOL TARTRATE 25 MG TABLET (FP) PO SCH (09:53)
--- NOTE | 2018-03-14 13:26 | PN ---
Progress Note, Physician History of Present Illness: Resting comfortably, no complaints, tolerating PT. - Current Medication List Current Medications: Active Medications Acetaminophen (Tylenol -) 650 mg PO Q4H PRN PRN Reason: FEVER Aspirin (Asa -) 81 mg PO DAILY [facility] Last Admin: 03/14/18 09:53 Dose: 81 mg Atorvastatin Calcium (Lipitor -) 20 mg PO HS [facility] Last Admin: 03/13/18 21:29 Dose: 20 mg Calcium Carbonate/Cholecalciferol (Os-Nicolas 500+D -) 1 tab PO BID [facility] Last Admin: 03/14/18 09:53 Dose: 1 tab Docusate Sodium (Colace -) 100 mg PO TID [facility] Last Admin: 03/14/18 05:49 Dose: 100 mg Donepezil HCl (Aricept -) 10 mg PO HS [facility] Last Admin: 03/13/18 21:29 Dose: 10 mg Enoxaparin Sodium (Lovenox -) 40 mg SQ DAILY [facility] Last Admin: 03/14/18 09:53 Dose: 40 mg Fentanyl (Sublimaze Injection -) 50 mcg IVPUSH [id number] PRN PRN Reason: PAIN-PACU ORDER X 4 DOSES ONLY Last Admin: 03/10/18 17:10 Dose: 50 mcg Ferrous Sulfate (Feosol -) 325 mg PO BIDWM [facility] Last Admin: 03/14/18 09:52 Dose: 325 mg Fluoxetine HCl (Prozac -) 10 mg PO DAILY [facility] Last Admin: 03/14/18 09:53 Dose: 10 mg Lisinopril (Prinivil) 20 mg PO DAILY [facility] Last Admin: 03/14/18 09:52 Dose: 20 mg Magnesium Hydroxide (Milk Of Magnesia -) 30 ml PO DAILY PRN PRN Reason: CONSTIPATION Metoprolol Tartrate (Lopressor -) 25 mg PO BID [facility] Last Admin: 03/14/18 09:53 Dose: 25 mg Ondansetron HCl (Zofran Injection) 4 mg IVPUSH Q6H PRN PRN Reason: NAUSEA AND/OR VOMITING - Objective Vital Signs: Vital Signs Temperature 98.9 F 03/14/18 09:05 Pulse Rate 84 03/14/18 09:05 Respiratory Rate 19 03/14/18 09:05 Blood Pressure 144/59 03/14/18 09:05 O2 Sat by Pulse Oximetry (%) 94 L 03/13/18 22:00 Constitutional: Yes: No Distress, Calm Neck: Yes: Supple Cardiovascular: Yes: Regular Rate and Rhythm Respiratory: Yes: Regular, CTA Bilaterally Gastrointestinal: Yes: Normal Bowel Sounds, Soft Edema: No Labs: CBC, BMP 03/14/18 07:30 03/14/18 07:30 INR, PTT INR 1.10 (0.83-1.09) H 03/07/18 16:00 Problem List - Problems (1) Dementia Code(s): F03.90 - UNSPECIFIED DEMENTIA WITHOUT BEHAVIORAL DISTURBANCE Qualifiers: Dementia type: unspecified type Dementia behavioral disturbance: with behavioral disturbance Qualified Code(s): F03.91 - Unspecified dementia with behavioral disturbance (2) HTN (hypertension) Code(s): I10 - ESSENTIAL (PRIMARY) HYPERTENSION Qualifiers: Hypertension type: essential hypertension Qualified Code(s): I10 - Essential (primary) hypertension (3) Hypercholesterolemia Code(s): E78.00 - PURE HYPERCHOLESTEROLEMIA, UNSPECIFIED (4) Wrist fracture, left Code(s): S62.102A - FRACTURE OF UNSP CARPAL BONE, LEFT WRIST, INIT FOR CLOS FX Qualifiers: Encounter type: initial encounter Fracture type: closed Qualified Code(s) : S62.102A - Fracture of unspecified carpal bone, left wrist, initial encounter for closed fracture (5) Intertrochanteric fracture of left hip Code(s): S72.142A - DISPLACED INTERTROCHANTERIC FRACTURE OF LEFT FEMUR, INIT Qualifiers: Encounter type: initial encounter Fracture type: closed Fracture alignment: displaced Qualified Code(s): S72.142A - Displaced intertrochanteric fracture of left femur, initial encounter for closed fracture Assessment/Plan 03/08/2018 Echo: Normal LV size with mild cLVH, normal RV size and fxn, tr TR, tr-mild MR 1. Left wrist fracture and left hip fracture s/p left hip intramedullary nail 2. HTN 3. Hypercholesterolemia 4. Organic brain syndrome/dementia PLAN: 1. Continue ASA 81 qd, Lisinopril 20 qd, Lopressor 25 bid and Lipitor 20 qhs 2. DVT prophylaxis, analgesia as needed 3. PT and eventual SNF
--- NOTE | 2018-03-14 13:47 | DS ---
Physical Exam: SUBJECTIVE: Patient seen and examined this morning at bedside. Had 1 BM, tolerated diet, Did not request pain meds overnight as per nursing staff. OBJECTIVE: Vital Signs Period Temp Pulse Resp BP Sys/Lara Pulse Ox Last 24 Hr 98.9 F-99.6 F 79-84 19-20 124-153/59-86 94 PHYSICAL EXAM GENERAL: AOx1 to person only, Hard of hearing, in no acute distress EYES: PERRL, EOMI THROAT: Oropharynx clear without exudates, moist mucous membranes. LUNGS: Breath sounds equal, clear to auscultation bilaterally, no wheezes HEART: Regular rate and rhythm, S1, S2 without murmur. ABDOMEN: Soft, Obese, nontender, nondistended, normoactive bowel sounds UPPER EXTREMITIES: Left wrist casted, Radial pulses covered by hard cast, Capillary refill < 3 secs, C5-T1 gross sensation intact LOWER EXTREMITIES: Left hip dressing clean, dry and intact. No surorunding edema , erythema or discharge. L4-S1 gross sensation intact b/l LABS Laboratory Results - last 24 hr 03/14/18 03/14/18 07:30 07:30 WBC 11.7 H RBC 2.82 L Hgb 8.6 L Hct 25.3 L MCV 89.4 MCH 30.3 MCHC 33.9 RDW 12.8 Plt Count 349 D MPV 7.5 Absolute Neuts (auto) 8.7 Neutrophils % 74.8 Lymphocytes % 11.6 Monocytes % 10.9 H Eosinophils % 2.2 D Basophils % 0.5 Nucleated RBC % 0 Sodium 142 Potassium 3.8 Chloride 107 Carbon Dioxide 28 Anion Gap 7 L BUN 20 H Creatinine 0.5 L Creat Clearance w eGFR > 60 Random Glucose 107 H Calcium 7.7 L Phosphorus 3.2 Magnesium 2.2 IMAGING: - X-ray of the pelvis and left hip: There is a comminuted fracture of the left the femoral intratrochanteric bone with displaced fragments and avulsion of the lesser trochanter. On the crosstable lateral view, there is very poor visualization of the left femoral neck and intertrochanteric region, due to technique with suggestion of mild anterior displacement of the distal femoral shaft. Correlate clinically - X-ray of the left elbow: No gross fracture or dislocation identified - X-ray of the left wrist: Displaced fracture of the distal radius with posterior/ lateral displacement of the distal segment. - X-ray of the left wrist: Previously visualized distal radial fracture appears to be in satisfactory alignment with residual minimal displacement. Avulsion fracture of the ulnar styloid process is again seen. - CXR: [id number] cardiomegaly with moderate to marked atherosclerotic uncoiling of the aortic arch. Mild bilateral increased lung markings without evidence of acute lung disease. - CT Brain: Generalized volume loss and moderate to marked ventricular dilatation. Lateral and third ventricles are relatively more dilated than the fourth, likely due to central atrophy. Cannot rule out normal pressure hydrocephalus or aqueduct of Sylvius narrowing/stenosis. Correlate clinically for further evaluation and follow-up - CT Cervical spine: The alignment is satisfactory. No gross fracture or subluxation is seen. HOSPITAL COURSE: Date of Admission:03/07/18 Date of Discharge: 03/14/18 Hospital Course Patient was admitted for fractures of the L wrist and L hip s/p mechanical fall. Her L Wrist fracture was manually reduced and casted in the ED by Dr. Bob. She had a fever for which a CXR, Blood Cx, UA and urine culture were order. The fever resolved with tylenol. Her L hip fracture was operated on by Dr. Bob. Her pain was controlled with Tylenol 1000mg and Morphine 2mg. Patient will need repeat imaging of the L wrist when she follows up with Orthopedics as an outpatient. Patient was told to use tylenol for pain upon discharge. Patient was discharged to a SNF on one month dvt ppx (Lovenox) with follow up in [address] Bob for suture removal. Minutes to complete discharge: 40 Discharge Summary Reason For Visit: FRACTURE OF LEFT WRIST/DEMENTIA Current Active Problems Dementia (Acute) HTN (hypertension) (Acute) Hypercholesterolemia (Acute) Intertrochanteric fracture of left hip (Acute) Pre-operative cardiovascular examination (Acute) Wrist fracture, left (Acute) Condition: Stable - Instructions Diet, Activity, Other Instructions: You were admitted for a Left wrist fracture and Left Hip fracture. Your wrist fracture was manually reduced in the ED. You will need follow up imaging for your wrist fracture. You are being discharged on Lovenox for 1 month. This medication is a blood thinner, please take this medication as prescribed. Please call your doctor if you notice any new bleeds. Please follow up with Dr. Bob in the office within 2 weeks for suture removal. Please the dressing clean, dry and intact in the mean time. Please use Tylenol for pain as needed. Please continue all other home medications as prescribed before your admission. Please follow up with your primary care physician in one week. If you are unable to follow up with your primary doctor, you can setup an appointment at the [facility]. If you experience any worrisome symptoms including fevers, chills, chest pain, shortness of breath, bloody urine, weakness, fatigue, please return the ED or call 911. Referrals: Jose Elias Bob MD [Staff Physician] - Abida Reid [Primary Care Provider] - Disposition: CARE HOME FACILITY - Home Medications Comprehensive Discharge Medication List: Ambulatory Orders Acetaminophen [Tylenol] 650 mg PO DAILY PRN 03/07/18 Aspirin 81 mg PO DAILY 03/07/18 Bimatoprost [Lumigan] 1 drop IO DAILY 03/07/18 Calcium Carbonate/Vitamin D3 [Oyster Shell 500-Vit D3 200 Tb] 1 each PO DAILY Cholecalciferol (Vitamin D3) [Vitamin D3] 1,000 unit PO DAILY 03/07/18 Donepezil HCl [Aricept -] 10 mg PO DAILY 03/07/18 Fluoxetine HCl [Sarafem] 10 mg PO DAILY 03/07/18 Fluticasone Prop 0.05% Nasal [Flonase -] 1 - 2 spray NS DAILY 03/07/18 Lisinopril [Prinivil] 20 mg PO DAILY 03/07/18 Memantine HCl [Namenda -] 10 mg PO DAILY 03/07/18 Simvastatin [Zocor -] 20 mg PO HS 03/07/18 clonazePAM [Klonopin -] 0.5 mg PO DAILY 03/07/18 Polyvinyl Alcohol [Artificial Tears] 1 drop OS TID 03/08/18 Timolol 0.25% [Timoptic 0.25%] 1 drop OD BID 03/08/18 Aspirin [ASA -] 81 mg PO DAILY tab.chew 03/14/18 Docusate Sodium [Colace -] 100 mg PO TID capsule 03/14/18 Enoxaparin [Lovenox -] 40 mg SQ DAILY disp.syrin 03/14/18 Ferrous Sulfate [Feosol] 325 mg PO BIDWM ud 03/14/18 Lisinopril [Prinivil] 20 mg PO DAILY tablet 03/14/18 Metoprolol Tartrate [Lopressor -] 25 mg PO BID tablet 03/14/18 This patient is new to me today: No Emergency Visit: Yes ED Registration Date: 03/07/18 Care time: The patient presented to the Emergency Department on the above date and was hospitalized for further evaluation of their emergent condition. Critical Care patient: No - Discharge Referral Referred to [facility] No
[2018-03-14 14:40] VITALS: BP 132/56; PULSE 78; TEMP 98.8
== END 2018-03-14 20:25 | DRG 481 ==
LOC: JER 15:05 → JERBED 22:38 → J5S 03-08 02:43 → J6S 03-10 18:45
PROVIDERS: ADMIT Internal Medicine; ATTEND Internal Medicine
PROC: 2W3FX2Z Immobilization of Left Hand using Cast (ICD-10-PCS; 2018-03-10)
PROC: 0QS706Z Reposition Left Upper Femur with Intramedullary Internal Fixation Device, Open Approach (ICD-10-PCS; principal; 2018-03-10 11:00)
DX: S72.142A Displaced intertrochanteric fracture of left femur, initial encounter for closed fracture (principal); S52.512A Displaced fracture of left radial styloid process, initial encounter for closed fracture; S62.102A Fracture of unspecified carpal bone, left wrist, initial encounter for closed fracture; W18.39XA Other fall on same level, initial encounter; Y92.092 Bedroom in other non-institutional residence as the place of occurrence of the external cause; F03.90 Unspecified dementia, unspecified severity, without behavioral disturbance, psychotic disturbance, mood disturbance, and anxiety; R50.82 Postprocedural fever; D64.9 Anemia, unspecified; R45.1 Restlessness and agitation; Z91.19 Patient's noncompliance with other medical treatment and regimen; F32.9 Major depressive disorder, single episode, unspecified
CPT/HCPCS: 36415; 70450-TC; 71045-TC-FY; 72125-TC; 73070-TC-LT-FY; 73110-TC-LR-FY; 73523-TC-FY; 76000-TC-FY; 80048; 80053; 81003; 81015; 82550; 82553; 83735; 84100; 84484; 85025; 85027; 85610; 86850; 86900; 86901; 87040; 87086; 93005; 93010; 93306-TC; 94760; 97116-GP; 97162-GP; 99285-25; J0131; J1644; J7030